=== PATIENT | male | born 1945 | race Caucasian/White ===

== ENCOUNTER → 2018-03-12 | Outpatient (CLI) | payer OTHER ==
[~2018-03-12] VITALS: Ht 185.4 cm; Wt 106.6 kg
[~2018-03-12] MED LIST: AMLODIPINE BESY10 MG PO; ASPIR 8181 MG PO; COREG25 MG PO; COZAAR 25 MG TA25 M2 PO; CRANBERRY250 MG PO; KLOR-CON 1010 MEQ PO; LASIX 20 MG TAB20 MG PO; LIPITOR 20 MG T20 M1 PO; PRESERVISION T1 EACH PO; VITAMIN D2000 UNIT PO
[2018-03-12 08:14] VITALS: BP 148/53
[2018-03-12 08:22] LABS: HEMATOCRIT 31.2 % (42.0-52.0); HEMOGLOBIN 10.9 gm/dL (14.0-18.0); MCH 33.5 pg (26.0-34.0); MCHC 34.8 g/dL (28.0-37.0); MCV 96.3 fL (80.0-100.0); RBC 3.24 mil/uL (4.50-6.00); RDW 12.6 % (10.5-14.5); WBC 11.1 thou/uL (4.0-11.0)
[2018-03-12 08:36] LABS: APTT 26.1 Seconds (24.5-32.8); PROTIME 9.5 Seconds (9.3-11.4)
== END ==
LOC: SPEC 07:42
PROVIDERS: Radiology Diagnostic Radiology
DX: I12.9 Hypertensive chronic kidney disease with stage 1 through stage 4 chronic kidney disease, or unspecified chronic kidney disease (principal); N18.3 Chronic kidney disease, stage 3 (moderate); N28.1 Cyst of kidney, acquired; K80.80 Other cholelithiasis without obstruction; M10.9 Gout, unspecified; F17.200 Nicotine dependence, unspecified, uncomplicated; F10.20 Alcohol dependence, uncomplicated

== ENCOUNTER → 2018-03-17 | Outpatient (CLI) | payer OTHER ==
[~2018-03-17] VITALS: Ht 185.4 cm; Wt 106.6 kg
[2018-03-17] VITALS (8 sets, daily range): BP systolic 163–1179; BP diastolic 59–77
[~2018-03-17] MED LIST changes: +AMLODIPINE BESYL5 M1 PO; +BYSTOLIC 5 MG5 M1 PO; +CO Q-10100 M1 PO; +COLCHICINE0.6 M1 PO; +LASIX 40 MG TAB40 M1 PO; +SODIUM BICARBO650 M3 PO
[2018-03-17 09:02] LABS: HEMATOCRIT 28.9 % (42.0-52.0); MCH 33.8 pg (26.0-34.0); MCHC 34.6 g/dL (28.0-37.0); MCV 97.6 fL (80.0-100.0); RBC 2.96 mil/uL (4.50-6.00); RDW 12.6 % (10.5-14.5); WBC 8.6 thou/uL (4.0-11.0)
[2018-03-17 09:13] LABS: CALCIUM 9.2 mg/dL (8.5-10.1); CREATININE 4.2 mg/dL (0.7-1.3); POTASSIUM 4.6 mmol/L (3.5-5.1)
[2018-03-17 09:14] LABS: PROTIME 9.5 Seconds (9.3-11.4)
--- NOTE | 2018-03-22 16:05 | PATH ---
[facility] [address] [place] [address] PATHOLOGY RPT PROCEDURE Name: DEBBIE GUTIERREZ SPENCER Room #: REG ABIGAIL Valentin#: [id number] ������������������ Admission: 03/17/18 ������������������ Date of : 43 Discharge: Report #: [id number] Path Case #: [id number] [facility] Accession Number: [id number] . 01 Material submitted: . LEFT RENAL BIOPSY . 01 Clinical history: . Renal failure . 02 Diagnosis: Special studies report received from [facility], [address] [place] [address], [place] [address], on case [id number], labeled with their number [id number], dated 03/18/2018. . Specimen submitted: By Efren Rush MD For Kidney, biopsy . DIAGNOSIS: Nodular Glomerulosclerosis. See Comment. . Tubular Atrophy and Interstitial Fibrosis, Severe. . Arterio- and Arteriosclerosis with Hyalinosis, Severe. . Global (10/07) and Segmental Glomerulosclerosis. . Comment: The glomerular findings present in this biopsy are most commonly seen in association with diabetes mellitus/glucose intolerance disorders. However, if the patient lacks a history of diabetes mellitus, the findings may represent idiopathic nodular glomerulosclerosis, an entity that can be associated with hypertension and smoking (see references). . Reference: Violet GS, Mouna J, et al. Idiopathic Nodular Glomerulosclerosis is a Distinct Clinical Pathologic Entity Linked to Hypertension and Smoking. Human Pathology. 2001; 33 (a): 826-35. . Reference: Dylan Slater V. Nodular Glomerulosclerosis in the Non-diabetic Smoker. J Am Soc Nephrol 18: 9296-9609, 2006. . Clinical History: The patient is a 72 year-old male with kidney biopsy. . Gross Description: Received from [facility] via [facility] are two foreign specimen bottles; one bottle contains formalin and the other contains Sandro's fixative. The bottles are labeled with the patient's name [address] [address] PATHOLOGY RPT PROCEDURE Name: JOSEFAANDREEA MICHELEYDE [facility] Room #: REG [facility].#: [id number] ������������������ Admission: 03/17/18 ������������������ Date of : 43 Discharge: Report #: [id number] Path Case #: [id number] ([place]st[place] MillsDebbie). . Received in formalin are two pieces of tissue measuring 1.2 x 0.1 x 0.1 cm (fatty end; bisected) and 0.3 x 0.1 x 0.1 cm (fatty). One end is submitted for electron microscopy and the remainder of the tissue is submitted in its entirety for light microscopy. . Received in Sandro's fixative is one piece of tissue measuring 1.8 x 0.1 x 0.1 cm (fatty end/middle section). The specimen is submitted in its entirety for immunofluorescence microscopy. . Microscopic Description: LIGHT MICROSCOPY: . Tissue submitted for light microscopic examination is represented by renal cortex with scant corticomedullary junction issue. There are up to eight glomeruli present, three of which are globally sclerotic. The glomeruli appear normal in size and exhibit mild to moderate expansion of mesangial matrix, focally forming early nodules. There is mild global thickening of the glomerular basement membrane. One glomerulus displays segmental scarring. There is no evidence of endocapillary proliferation, necrosis, or crescent formation. There is severe tubular atrophy and interstitial fibrosis involving approximately 60% of the cortex sampled. There is mild mixed interstitial inflammation seen in the areas of tubulointerstitial scarring. The background tubules display changes of mild tubular injury. Arterioles exhibit severe arteriolar hyalinosis, and the arteries exhibit severe intimal fibrosis. No evidence of arteritis is identified. Congo red stain for amyloid is negative. Toluidine blue-stained sections for electron microscopy show three glomeruli, one of which is globally sclerotic. . Standard of care requirements for proper analysis of renal biopsies mandates serial sections, and PAS, Olivo silver, trichrome and SMMT stains at multiple levels. PAS stains are used to evaluate various aspects of the glomerular, tubular, and vascular basement membranes. Olivo silver stains are used to evaluate thickening, reduplication, "spiking" or "bubbling" of the glomerular basement membrane. Toluidine blue stained sections highlight glomerular basement membranes and demonstrates unusual types of deposits. It also reveals details of tubular epithelial cells and aids in the analysis of vascular lesions. Jason trichrome stains are used to evaluate interstitial fibrosis and basement membrane deposits. The SMMT stain helps evaluate basement membrane changes, immune deposits and tubulointerstitial scarring. Controls are routinely run on all special stains and are verified for acceptability. A review of the technical quality of routine slides is made before results are reported. . . IMMUNOFLUORESCENCE: [address] [address] PATHOLOGY RPT PROCEDURE Name: DEBBIE GUTIERREZ III Room #: REG ABIGAIL Valentin#: [id number] ������������������ Admission: 03/17/18 ������������������ Date of : 43 Discharge: Report #: [id number] Path Case #: [id number] The sections are stained for IgG, IgM, IgA, C3, C1q, albumin, fibrinogen, and kappa and lambda light chains. Seven glomeruli are present for evaluation including three globally sclerotic. Two glomeruli display segmental scarring. Glomeruli show nodular appearing mesangial expansion by darkfield examination. All stains are negative in glomeruli. There is no significant extraglomerular staining. Crawford and lambda stain equally throughout the tubulointerstitium. . Positive and negative controls are run on all immunofluorescent stains and are verified for acceptability before results are reported. Internal antigens serve as positive controls. . ELECTRON MICROSCOPY: One block is prepared. Ultrastructural evaluation of a glomerular reveals basement membranes which are variably thickened. There is mesangial matrix expansion present. Though the mesangium contains ill-defined densities, no definite immune-type electron-dense deposits are present. No definitive immune-type electron-dense deposits are identified along the capillary refills. There is moderate to severe epithelial foot process effacement. The tubular basement membranes show moderate to severe thickening. . Special procedures including immunofluorescence and electron microscopy correlate with the light microscopy findings. . Note: Some of the tests reported here may have been developed and performance characteristics determined by [facility]. They have not been cleared or approved by the U.S. Food and Drug Administration (FDA). The FDA does not require this test to go through premarket FDA review. This test is used for clinical purposes. It should not be regarded as investigational or for research. [facility] is certified under the Clinical Laboratory Improvement Amendments of 1988 (CLIA) as qualified to perform high complexity clinical laboratory testing. . Physician/Physician's office called on 03/18/2018 at 3:17 PM Central. . *I have reviewed the clinical history, the pertinent gross findings, all microscopic materials, discussed the case with the clinician when appropriate, and have rendered the final diagnosis. . CPT Codes Performed: 96072; 51180d1; 59096; 82265; 20507q0 lCD Codes: E11.21, I12.9 . Final Diagnosis performed by Ismael Vazquez M.D. Electronically signed 03/18/2018 5:35:[address] . [address] [address] PATHOLOGY RPT PROCEDURE Name: DEBBIE GUTIERREZ [facility] Room #: REG [facility].#: [id number] ������������������ Admission: 03/17/18 ������������������ Date of : 44 Discharge: Report #: [id number] Path Case #: [id number] . A complete copy of the report is on file. . Professional and technical services performed by [facility] [place] [address] [facility], [address], [address]. . (AMJ 03/19/2018) . AZJ/03/19/2018 . 02 Electronically signed: . Julieth Borden MD, Pathologist NPI- [id number] . 01 Gross description: . The specimen is received in formalin, labeled "[place] III, Debbie, left renal general BX", is a keenan-white needle core approximately measuring 1.2 cm in length and up to 0.1 cm in diameter. All tissues are sent to, and the final report will be submitted from, [facility]. . Also received in Karina fixative, labeled "[place] III, Debbie, left renal general BX", is a keenan-white needle core approximately measuring 1.5 cm in length and up to 0.1 cm in diameter. All tissues are sent to, and the final report will be submitted from, [facility]. (SWS; 03/17/2018) SHS/SHS . 02 Pathologist provided ICD-10: N19 . 02 CPT . 862413 Specimen Comment: A courtesy copy of this report has been sent to Specimen Comment: [phone], , . Specimen Comment: Report sent to , and Performed at: [address] [facility], [place], [place] [id number] MD Ryan Padilla MD Phone: [phone] Performed at: [address] [id number] MD Julieth Borden MD Phone: [phone]
== END | disposition home or self-care (01) ==
LOC: SPEC 08:38
PROVIDERS: Radiology Diagnostic Radiology
DX: I12.9 Hypertensive chronic kidney disease with stage 1 through stage 4 chronic kidney disease, or unspecified chronic kidney disease (principal); E11.22 Type 2 diabetes mellitus with diabetic chronic kidney disease; E11.21 Type 2 diabetes mellitus with diabetic nephropathy; N18.3 Chronic kidney disease, stage 3 (moderate); M10.9 Gout, unspecified; E78.5 Hyperlipidemia, unspecified; E66.09 Other obesity due to excess calories; F17.210 Nicotine dependence, cigarettes, uncomplicated; Z79.899 Other long term (current) drug therapy; Z79.82 Long term (current) use of aspirin; Z98.890 Other specified postprocedural states

== ENCOUNTER 2018-04-22 17:55 | Inpatient (IN) | payer OTHER ==
[2018-04-22] VITALS (8 sets, daily range): BP systolic 130–161; BP diastolic 35–54
[~2018-04-22] VITALS: Ht 182.9 cm; Wt 93.0 kg
--- NOTE | ~2018-04-22 | HC ---
[facility] [place] [address] CONSULTATION Name: DEBBIE GUTIERREZ III Room #: 240-P ADM IN M.R.#: [id number] Admission: 04/22/18 Attend Phys: Mihai Denney Discharge: Date of : 44 Report #: [id number] THIS REPORT FOR: //name// CC: Ros Carson NO PCP Frank Mcintosh DATE OF SERVICE: 04/23/2018 REASON FOR PRESENTATION: Feeling weak and bilateral lower extremity swelling. REASON FOR CONSULTATION: Hyperkalemia and advanced chronic kidney disease. HISTORY OF PRESENT ILLNESS: A 73-year-old with past medical history of hypertension. He is known to have advanced stage 5 chronic kidney disease and used to follow up with [facility]. He last saw his pea viner mechanic in March 2017 and he was told that he is very close to hemodialysis. He was told that his kidney disease is likely due to hypertension. No known personal history of nonsteroidal anti-inflammatory medications. He is not diabetic. His mom had some issues with end-stage renal disease that was attributed to hypertension toward the end of her life. The patient presented with weakness and was found to be hyperkalemic yesterday. He has all the acute changes of hyperkalemia. He was admitted to the intensive care unit to further evaluate. I am being consulted to manage his hyperkalemia and chronic kidney disease. In talking with the patient, he tells me that he is completely adamant about not pursuing hemodialysis. Because of this, he opted to consult with a chiropractic physician who advised the patient to start on a heavy fruit diet. He also had been taking losartan. The patient tells me he also had some issues with fluid retention, bilateral lower extremity swelling that was not responding to appropriate diuretic therapy. He was told by his pea viner mechanic that he also has cysts on his kidneys. No sensed symptoms to suggest connective tissue disorders or glomerulonephritis. No vasculitic symptoms. No obstructive symptoms. In fact, he had made significant amount of urine in the last 24 hours. PAST MEDICAL AND SURGICAL HISTORY: 1. Advanced chronic kidney disease. 2. Hypertension. 3. Hand surgery. 4. Colonoscopies. 5. Gout. 6. Renal cysts. 7. Post renal biopsy in February 2018, was nonconclusive suggestive of advanced chronic kidney disease. [address] [address] CONSULTATION Name: DEBBIE GUTIERREZ [facility] Room #: 240-P [facility] IN M.R.#: [id number] Admission: 04/22/18 Attend Phys: Mihai Denney Discharge: Date of : 44 Report #: [id number] MEDICATIONS: 1. Losartan. 2. Carvedilol. 3. Amlodipine. 4. Atorvastatin. 5. Potassium. 6. Furosemide. 7. Cranberry. 8. Vitamin D. ALLERGIES: None. FAMILY HISTORY: His mom had issues with kidneys. REVIEW OF SYSTEMS: GENERAL: No fever or chills, but significant for weakness. CARDIOVASCULAR: No chest pain or palpitation, but had some shortness of breath. PULMONARY: Significant for shortness of breath. GASTROINTESTINAL: No nausea or vomiting. GENITOURINARY: No frequency, no urgency. MUSCULOSKELETAL: Significant lower extremity edema. PHYSICAL EXAMINATION: GENERAL: The patient was alert, oriented. VITAL SIGNS: Blood pressure is 151/57. HEAD AND NECK: No jugular venous distention, no bruit, no thyromegaly. CHEST: Decreased air entry bilaterally. CARDIOVASCULAR: No rub detected. ABDOMEN: Soft, nontender with no hepatosplenomegaly. EXTREMITIES: Lower extremities, +3 edema. LABORATORY DATA: Reviewed. White blood cell count is 12.2, hemoglobin is 8.1 up from 6.5. Chemistry from today revealed a sodium of 138, a potassium of 6.2, anion gap of 13, BUN of 53, creatinine of 5.5. Troponins were negative. UA with +2 protein and red blood cells. Serology for MRSA is pending. Lower extremity venous studies with no DVT. Chest x-ray with no acute cardiopulmonary process. ASSESSMENT, IMPRESSION AND PLAN: 1. End-stage renal disease. 2. Hyperkalemia. 3. Anemia. 4. Hypertension. 5. Metabolic acidosis. [address] [address] CONSULTATION Name: PABLO GUTIERREZE [facility] Room #: 240-P [facility] IN M.R.#: [id number] Admission: 04/22/18 Attend Phys: Mihai Denney Discharge: Date of : 44 Report #: [id number] This is a very well documented end-stage renal disease with hyperkalemia due to the recent changes in the diet. Contributing to his hyperkalemia is his medications and diet. Potassium has trended down significantly. He is receiving appropriate therapy for his hyperkalemia. His heart rhythm had stabilized after a junctional rhythm. We will continue with the medical management per patient wishes. Discontinue all potassium supplements. Discontinue losartan. Initiate on IV diuresis. End-stage renal disease workup and continue with the medical treatment. The patient is not willing to pursue the dialysis idea at this point; however, he is wide open to the idea and I will continue to monitor his kidney function if there is no improvement in his potassium. By: 0956 Ros Paulino MD /nt
--- NOTE | ~2018-04-22 | HC ---
[facility] [place] [address] CONSULTATION Name: DEBBIE GUTIERREZ III Room #: 240-P ADM IN M.R.#: [id number] Admission: 04/22/18 Attend Phys: Mihai Denney Discharge: Date of : 44 Report #: [id number] THIS REPORT FOR: //name// CC: Ros Carson NO PCP Frank Mcintosh DATE OF SERVICE: 04/23/2018 HISTORY OF PRESENT ILLNESS: This is a 73-year-old male patient who was evaluated by me for TIA. It looks like the patient had pretty typical TIA with right-sided weakness and speech difficulty. On evaluation, he was found to have severe carotid stenosis. Unfortunately, he has not had much medical compliance and he was also found to have numerous other medical problems including cardiac failure. He was sent for MRI and MRA, but he could not tolerate because he was severely claustrophobic. He is hypertensive. He is being seen by multiple consultants at a time including cardiothoracic/vascular surgery. REVIEW OF SYSTEMS: Pretty significant in this patient. The patient has a history of hypertension, chronic kidney disease, gout, had bradycardia. He had right-sided weakness and slurred speech and was not able to ambulate. He has a history of some skin problem, history of gout, renal cyst, moderate amount of alcohol drinking, history of hypertension. From all indication, it does not look like he is a compliant patient. REVIEW OF SYSTEMS: A 14-point review of system was carried out and this was the patient's relevant 14-point review of system. He was not complaining of any eye, ENT symptoms. He was not having any respiratory difficulty, GI, , musculoskeletal, constitutional, dermatological, hematological, psychiatric, throat, allergic symptom associated with present symptomatology. PAST MEDICAL HISTORY: Positive for kidney disease. FAMILY HISTORY: Negative for early age stroke. SOCIAL HISTORY: He does have a history of smoking. PHYSICAL EXAMINATION: Indicate he is alert, responsive, able to follow simple and complex command. His memory, fund of knowledge and speech is baseline. Both family and the patient think, the patient has returned back to his baseline. His cranial nerve examination appears noncontributory. New neuromuscular examination as checked for strength, sensation, reflexes and tone looks symmetrical. He has no meningeal sign. I could not look at the fundus. Cardiac examinations appear unremarkable. He does not appear to be in [address] [address] CONSULTATION Name: DEBBIE GUTIERREZ [facility] Room #: 240-P [facility] IN ..#: [id number] Admission: 04/22/18 Attend Phys: Mihai Denney Discharge: Date of : 44 Report #: [id number] respiratory difficulty. He is a well-developed individual who is obese. No respiratory difficulty was noticed. His blood pressure is running about 171/59, temperature is 97.4, pulse is 61. LABORATORY DATA: His carotid Doppler was noted and his labs were noted. He was markedly anemic with hemoglobin of 6.5. His potassium was 5.4. His CT scan was mostly unremarkable. Carotid Doppler indicate more than 90% stenosis. IMPRESSION: 1. Transient ischemic attack. 2. Carotid stenosis by Doppler, in appropriate location. 3. Numerous medical problems as summarized in other people's notes. RECOMMENDATIONS: 1. Continue aspirin. 2. Check lipid profile and manage accordingly. 3. Try to keep his blood pressure somewhat high. 4. It was desirable to confirm the carotid stenosis by some other testing. I had ordered an MRA for that. Unfortunately, the patient could not tolerate that. He could not have a CT angio because of his kidney problem. We will see how Cardiothoracic, Vascular Surgery feel comfortable proceeding on the basis of carotid Doppler alone. Otherwise, nothing specific to add. He needs to control his vascular risk factors over a period of time and all of it was discussed with the patient and the family in detail. By: 1920 0241 Cabrera Drummond MD /nt
[~2018-04-22 17:55] MED LIST changes: -AMLODIPINE BESYL5 M1 PO; -BYSTOLIC 5 MG5 M1 PO; -CO Q-10100 M1 PO; -COLCHICINE0.6 M1 PO; -LASIX 40 MG TAB40 M1 PO; -SODIUM BICARBO650 M3 PO
[2018-04-22 18:26] LABS: ABSOLUTE NEUTROPHILS 7.5 thou/uL (1.4-8.2); BASOPHILS 1.3 % (0.0-2.0); EOSINOPHILS 3.4 % (0.0-3.0); HEMATOCRIT 23.3 % (42.0-52.0); LYMPHOCYTES 10.2 % (24.0-44.0); MCH 33.8 pg (26.0-34.0); MCHC 34.4 g/dL (28.0-37.0); MCV 98.1 fL (80.0-100.0); PLATELET COUNT 157 thou/uL (150-400); POLYS 78.1 % (36.0-66.0); RBC 2.38 mil/uL (4.50-6.00); WBC 9.7 thou/uL (4.0-11.0)
[2018-04-22 18:39] LABS: ANION GAP 12 mmol/L (7-16); BUN 54 mg/dL (7-18); CALCIUM 8.3 mg/dL (8.5-10.1); CHLORIDE 106 mmol/L (98-107); CO2 17 mmol/L (21-32); CREATININE 5.5 mg/dL (0.7-1.3); GLUCOSE 124 mg/dL (74-106); SODIUM 135 mmol/L (136-145)
[2018-04-22 18:42] LABS: POTASSIUM 6.9 mmol/L (3.5-5.1)
[2018-04-22 18:44] LABS: POC CA IONIZED 3.8 mg/dL (4.5-5.3); POC CREATININE 4.9 mg/dL (0.6-1.3); POC HEMOGLOBIN 6.5 g/dL (14.0-18.0); POC POTASSIUM 5.8 mmol/L (3.5-5.1)
--- NOTE | 2018-04-22 18:45 | NUR ---
THIS RN WITNESSED INSULIN 10U DRAWN FOR ADMINISTRATION BY MERY ARRIAGA
[2018-04-22 18:46] LABS: ALBUMIN 3.2 g/dL (3.4-5.0); SGOT 33 U/L (15-37); SGPT 27 U/L (30-65); TOTAL BILIRUBIN 0.3 mg/dL (<0.1-1.0); TOTAL PROTEIN 6.1 g/dL (6.4-8.2); TROPONIN-I <0.06 ng/mL (<0.06)
[2018-04-22 18:47] LABS: APTT 24.5 Seconds (24.5-32.8); PROTIME 10.6 Seconds (9.3-11.4)
[2018-04-22 19:39] LABS: URINE BILIRUBIN NEGATIVE (Negative); URINE BLOOD 3+ (Negative); URINE CLARITY CLEAR; URINE COLOR YELLOW; URINE GLUCOSE-RANDOM* NEGATIVE (Negative); URINE KETONES NEGATIVE (Negative); URINE LEUKOCYTES-REFLEX NEGATIVE (Negative); URINE NITRITE-REFLEX NEGATIVE (Negative); URINE PROTEIN (DIPSTICK) 2+ (Negative); URINE SPECIFIC GRAVITY >= 1.030 (1.005-1.035); URINE UROBILINOGEN 0.2 E.U./dl (0.2-1.0)
[2018-04-22 19:49] LABS: POC CA IONIZED 5.9 mg/dL (4.5-5.3); POC CREATININE 5.6 mg/dL (0.6-1.3); POC HEMOGLOBIN 7.5 g/dL (14.0-18.0); POC POTASSIUM 5.6 mmol/L (3.5-5.1)
[2018-04-22 19:55] LABS: BACTERIA-REFLEX 1-9 Few /HPF (None Seen); HYALINE CASTS 0-3 Few /LPF (None Seen); MUCUS None Seen strn/LPF (None Seen); SQUAMOUS 0-3 Few /LPF (0-3); URINE RBC 3-10 Few /HPF (0-2); URINE WBC-REFLEX 0-5 Rare /HPF (0-5)
[2018-04-22 19:56] LABS: AMORPHOUS URATES Few /LPF (None Seen); CRYSTALS None Seen /LPF (None Seen)
[2018-04-22 21:28] LABS: POC CA IONIZED 5.5 mg/dL (4.5-5.3); POC CREATININE 5.2 mg/dL (0.6-1.3); POC HEMOGLOBIN 8.8 g/dL (14.0-18.0); POC POTASSIUM 5.2 mmol/L (3.5-5.1)
[2018-04-22] MEDS ORDERED: CO Q-10100 M1 PO (23:41)
[2018-04-23] VITALS (29 sets, daily range): BP systolic 143–191; BP diastolic 44–71
--- NOTE | 2018-04-23 04:38 | NUR ---
ASSUMED CARE OF PATIENT AT 2300, PATIENT HAD JUST BEEN ADMITTED FROM ER. ABLE TO ANSWER ALL ADMISSION QUESTIONS. STROKE ASSESSMENT DONE, SEE DOCUMENTATION. DENIES PAIN, SOA OR N/V. BLOOD SUGARS LABILE AFTER TREATMENT FOR POTASSIUM. MONITORING HOURLY. TOMAS TO DEPENDENT DRAINAGE, ADEQUATE OUTPUT. FAMILY AT BEDSIDE, UPDATED TO POC.
[2018-04-23 05:22] LABS: HEMATOCRIT 24.5 % (42.0-52.0); HEMOGLOBIN 8.1 gm/dL (14.0-18.0); MCH 32.4 pg (26.0-34.0); MCHC 32.9 g/dL (28.0-37.0); MCV 98.6 fL (80.0-100.0); RBC 2.49 mil/uL (4.50-6.00); RDW 13.2 % (10.5-14.5); WBC 12.2 thou/uL (4.0-11.0)
[2018-04-23 05:50] LABS: CHOLESTEROL 87 mg/dL (<200); HDL CHOLESTEROL 32 mg/dL (>40); LDL CHOLESTEROL 46 mg/dL (<100); TC:HDL 2.7 Ratio (Not establshd); TRIGLYCERIDE 48 mg/dL (<150); VLDL 10 mg/dL (<40)
[2018-04-23 05:51] LABS: SERUM ASSESSMENT Clear
[2018-04-23 05:56] LABS: CALCIUM 9.3 mg/dL (8.5-10.1); CREATININE 5.5 mg/dL (0.7-1.3)
[2018-04-23 06:08] LABS: POTASSIUM 6.2 mmol/L (3.5-5.1)
--- NOTE | 2018-04-23 08:15 | EKG ---
[address] [place] [address] ELECTROCARDIOGRAM REPORT Name: JOSEFAANDREEA MICHELELESLIE GAGNON [facility] Room #: 240-P ADM IN M.R.#: [id number] Admission: 04/22/18 Attend Phys: Mihai Denney Discharge: Date of : 44 Report #: [id number] THIS REPORT FOR: //name// [facility] ED Test Date: 2018-04-22 Test Time: 18:31:27 Pat Name: DEBBIE GUTIERREZ Department: Room: 240 Gender: M Professor Of Violin: : 1945 Requested By: Dipti Wallace Order Number: [id number] MD: Hansel Arroyo Measurements Intervals [place] Rate: 33 P: TN: QRS: 103 QRSD: 106 T: 58 QT: 528 QTc: 392 Interpretive Statements Sinus arrest with Junctional rhythm Right axis deviation No previous ECG available for comparison Electronically Signed On 04-23-2018 8:15:44 JAVA SWING DEVELOPER by Hansel Arroyo [email or web address] <ELECTRONICALLY SIGNED> By: Hansel Arroyo MD 04/23/18 0815 183 30 Hansel Arroyo MD /VISHAL
--- NOTE | 2018-04-23 08:43 | 2DMMODE ---
[facility] [place] [address] 2 D/M-MODE ECHOCARDIOGRAM Name: JHRYNEDEBBIE [facility] Room #: 240-P [facility] IN .R.#: [id number] Admission: 04/22/18 Attend Phys: Mihai Teague Discharge: Date of : 43 Date of Service: 04/23/18 0843 Report #: [id number] THIS REPORT FOR: //name// APPROVED REPORT Study performed: 04/22/2018 19:37:30 EXAM: Comprehensive 2D, Doppler, and color-flow Echocardiogram Patient Location: ER Room #: 6 Status: on-call BSA: 2.30 HR: 53 bpm BP: 149/53 mmHg Rhythm: Bradycardia Other Information Study Quality: Adequate Risk Factors: Cardiac Risk Factors: HTN Indications Symptomatic Bradycardia 2D Dimensions IVSd: 12.05 (7-11mm) LVOT Diam: 18.00 (18-24mm) LVDd: 45.02 mm PWd: 11.91 (7-11mm) Ascending Ao: 30.91 (22-36mm) LVDs: 31.98 (25-40mm) Aortic Root: 31.30 mm LV Single Plane 4CH: 66.98 % LV Single Plane 2CH: 63.86 % Biplane EF: 64.5 % Volumes Left Atrial Volume (Systole) Single Plane 4CH: 40.13 mL Single Plane 2CH: 80.33 mL LA ESV Index: 30.00 mL/m2 Aortic Valve AoV Peak Seb.: 1.81 m/s AO Peak Gr.: 13.10 mmHg LVOT Max P.04 mmHg LVOT Max V: 1.00 m/s THERESA Vmax: 1.38 cm2 [facility] [place] [address] 2 D/M-MODE ECHOCARDIOGRAM Name: JHDEBBIE MICHELE [facility] Room #: [facility] IN ..#: [id number] Admission: 04/22/18 Attend Phys: Mihai Teague Discharge: Date of : 43 Date of Service: 04/23/18 0843 Report #: [id number] Mitral Valve E/A Ratio: 1.6 MV Decel. Time: 265.34 ms MV E Max Seb.: 1.63 m/s MV A Seb.: 1.04 m/s MV PHT: 76.95 ms IVRT: 58.82 ms TDI E/Lateral E': 18.11 E/Medial E': 23.29 Medial E' Seb.: 0.07 m/s Lateral E' Seb.: 0.09 m/s Pulmonary Valve PV Peak Seb.: 1.42 m/s PV Peak Gr.: 8.08 mmHg Pulmonary Vein P Vein S: 0.58 m/s P Vein A: 0.22 m/s P Vein D: 0.89 m/s P Vein A Dur.: 134.9 msec P Vein S/D Ratio: 0.65 Tricuspid Valve TR Peak Seb.: 3.02 m/s RAP Estimate: 10.00 mmHg TR Peak Gr.: 36.41 mmHg PA Pressure: 46.00 mmHg Left Ventricle The left ventricle is normal size. There is normal LV segmental wall motion. Mild concentric left ventricular hypertrophy. Left ventricular systolic function is normal. The left ventricular ejection fraction is within the normal range. LVEF is 60-65%. Grade II - pseudonormal filling dynamics. Right Ventricle The right ventricle is normal size. The right ventricular systolic function is normal. Atria The left atrium size is normal. Right atrium is mildly dilated. Aortic Valve The Aortic valve is sclerotic. No aortic regurgitation is present. There is no aortic valvular stenosis. [facility] [address] [address] 2 D/M-MODE ECHOCARDIOGRAM Name: DEBBIE GUTIERREZ [facility] Room #: 240-P [facility] IN [facility]#: [id number] Admission: 04/22/18 Attend Phys: Mihai Teague Discharge: Date of : 43 Date of Service: 04/23/18 0843 Report #: [id number] Mitral Valve There is mitral annular calcification. Mild mitral regurgitation. No evidence of mitral valve stenosis. Tricuspid Valve The tricuspid valve is normal in structure. Mild tricuspid regurgitation. Pulmonary artery pressure is 46 mmHg. Pulmonic Valve The pulmonary valve is normal in structure. There is no pulmonic valvular regurgitation. Great Vessels The aortic root is normal in size. IVC is mildly dilated and collapses <50% with inspiration. Pericardium There is no pericardial effusion. <Conclusion> The left ventricle is normal size. Mild concentric left ventricular hypertrophy. Left ventricular systolic function is normal. Grade II - pseudonormal filling dynamics. The right ventricle is normal size. The left atrium size is normal. Right atrium is mildly dilated. The Aortic valve is sclerotic. Mild mitral regurgitation. Mild tricuspid regurgitation. Pulmonary artery pressure is 46 mmHg. <ELECTRONICALLY SIGNED> By: Keith Carson MD 04/23/18 0843 0843 0843 Keith Carson MD /INF
--- NOTE | 2018-04-23 15:18 | NUR ---
CM ASSESSMENT: CASE OPENED FOR DC PLANNING. CLINICAL INFO REVIEWED. ADMIT FOR HYPERKALEMIA (6.2) AND BRADYCARDIA, HX CKD 3 (CR NOW 5.5). MET WITH PT AND HIS SISTER AT BEDSIDE. 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 NO DME OR PREVIOUS HH. THERAPY EVALS ORDERED AND WILL FOLLOW TO ASSIST WITH COORDINATION OF DC NEEDS.
--- NOTE | 2018-04-23 19:00 | NUR ---
Pt alert and oriented. JUAN. No weakness or neurological defecit observed this shift. Pt taken for MRI this morning but pt indicated he would not be able to to have the test done due to claustraphobia. Pt was brought back to ICU and Dr Drummond was notified and test was cancelled for now. Pt in sinus rhythm. BP stable. NO report of chest pain. Pt does get short of air with exertion Breath sounds diminished bilaterally. Tolerating renal diet. Pt voided 2525 ml of urine. Pt had two loose stools after receiving Kayexylate. Saline lock right AC. Sister and son & daughter present at bedside most of the day. Report given to MERY lawler
[2018-04-24] VITALS (15 sets, daily range): BP systolic 134–177; BP diastolic 42–54
[2018-04-24 04:53] LABS: HEMATOCRIT 24.3 % (42.0-52.0); HEMOGLOBIN 8.2 gm/dL (14.0-18.0); MCH 32.6 pg (26.0-34.0); MCHC 33.9 g/dL (28.0-37.0); MCV 95.9 fL (80.0-100.0); RBC 2.53 mil/uL (4.50-6.00); RDW 12.8 % (10.5-14.5); WBC 10.9 thou/uL (4.0-11.0)
[2018-04-24 05:09] LABS: % SATURATION 9 % (20-39); IRON 26 ug/dL (65-175); TIBC 274 ug/dL (250-450)
[2018-04-24 05:12] LABS: ALBUMIN 3.1 g/dL (3.4-5.0); ANION GAP 12 mmol/L (7-16); BUN 50 mg/dL (7-18); CALCIUM 9.1 mg/dL (8.5-10.1); CHLORIDE 107 mmol/L (98-107); CO2 22 mmol/L (21-32); CREATININE 5.5 mg/dL (0.7-1.3); GLUCOSE 87 mg/dL (74-106); PHOSPHORUS 6.7 mg/dL (2.5-4.9); POTASSIUM 4.6 mmol/L (3.5-5.1); SODIUM 141 mmol/L (136-145); TROPONIN-I <0.06 ng/mL (<0.06)
--- NOTE | 2018-04-24 06:07 | NUR ---
Pt slept well through the night with stable VS and no c/o pain. Continues to diurese well with lasix given. No changes in neuro status observed. Am lab results noted, continue with POC.
[2018-04-24 07:10] LABS: GLYCOHEMOGLOBIN (HGB A1C) 4.3 % (4.8-5.6)
--- NOTE | 2018-04-24 12:21 | NUR ---
ASSESSMENTS DOCMENTED. VSS. HTN - STARTED ON PO NORVASC. WORKED WITH PT, UP TO CHAIR WITH STANDBY ASSIST. FOLY PATENT, GOOD URINE OUTPUT. DENIES ANY PAIN OR DISCOMFORT. ORDERS TO TRANSFER TO CCU. REPORT GIVEN TO IRENE ORDONEZ. TRANSFERRED TO ROOM 209 IN STABLE CONDITION. ALL BELONGINGS WITH PATIENT, FAMILY NOTIFIED.
--- NOTE | 2018-04-24 16:15 | NUR ---
PT TO UNIT FROM THE ICU. PT ORINETED TO ROOM AND BED SPACE - PT UP IN CHAIR SINCE ARRIVAL TO UNIT, THINKS HE MAY HAVE BUMPED HIS R KNEE ON BED RAIL LAST PM - STATED IT HURT A LITTLE ICE PACK APPLIED AND PT STATES IT FEELS BETTER - ASSESSMENT CHARTED - MEDS PER MAR - NO CO'S OF PAIN OR NASUEA. NO CO'S AT PRESENT TIME.
[2018-04-25] VITALS: BP 152/60
[2018-04-25 04:51] VITALS: BP 164/52
[2018-04-25 04:59] LABS: CREATININE 5.6 mg/dL (0.7-1.3); PHOSPHORUS 6.4 mg/dL (2.5-4.9); POTASSIUM 3.9 mmol/L (3.5-5.1); TOTAL BILIRUBIN 0.5 mg/dL (<0.1-1.0); TOTAL PROTEIN 6.3 g/dL (6.4-8.2)
[2018-04-25 05:12] LABS: HEMATOCRIT 24.2 % (42.0-52.0); HEMOGLOBIN 8.3 gm/dL (14.0-18.0); MCH 32.9 pg (26.0-34.0); MCHC 34.4 g/dL (28.0-37.0); MCV 95.4 fL (80.0-100.0); RBC 2.54 mil/uL (4.50-6.00); RDW 12.8 % (10.5-14.5); WBC 9.2 thou/uL (4.0-11.0)
--- NOTE | 2018-04-25 05:36 | NUR ---
ASSUMED PT CARE AT 1900 WITH NO SIGN OF DISTRESS NOTED IN PT. PT IS ALERT AND ORIENTED. PT IS SITTING IN CHAIR WITH FAMILY AT BEDSIDE. PT IS STABLE, VITAL SIGN STABLE. SCHEDULED MED ADMINISTERED TO PATIENT. PT'S HEART RYHTHM IS STABLE, DENIES ANY FURTHER NEEDS AT THIS TIIME.
[2018-04-25 07:55] VITALS: BP 140/47
[2018-04-25 12:15] VITALS: BP 153/53
[2018-04-25 16:10] VITALS: BP 133/49
--- NOTE | 2018-04-25 17:26 | NUR ---
ASSESSMENT CHARTED - MEDS PER MAY - NO CO'S OF PAIN OR NASUEA. HUMBERTO DIET AND FLUIDS. PT CONT TO HAVE PAIN IN R KNEE - STARTED ON GOUT MEDICINE THIS AM AND GIVEN TYLEONOL WITH MIN EFFECT. UP WITH STANDBY ASSIST TOT BATHROOM DUE TO PAIN IN KNEE. NO CO'S AT THE PRESENT TIME.
[2018-04-25 20:26] VITALS: BP 174/53
[2018-04-26 03:43] LABS: CALCIUM 8.4 mg/dL (8.5-10.1); PHOSPHORUS 6.3 mg/dL (2.5-4.9); POTASSIUM 3.9 mmol/L (3.5-5.1)
[2018-04-26 04:44] VITALS: BP 151/55
--- NOTE | 2018-04-26 05:57 | NUR ---
ASSUMED PT CARE AT 1900 WITH NO SIGN OF DISTRESS NOTED IN PT, PT IS ALERT AND ORIENTED, FAMILY SITTING AT BEDSIDE. PT IS STABLE AND SITTING IN CHAIR, DENIES ANY NEEDS AT THIS TIME.SCHEDULED MED ADMINISTERED TO PT AND TOLERATED PO INTAKE. PT IS STABLE. VITAL SIGN STABLE. DENIES ANY FURTHER NEEDS AT THIS TIME. ASSESSEMENT DOCUMENTED.
[2018-04-26 07:55] VITALS: BP 148/44
[2018-04-26] MEDS ORDERED: BYSTOLIC 5 MG5 M1 PO (08:51)
[2018-04-26] MEDS ORDERED: AMLODIPINE BESYL5 M1 PO (08:52)
[2018-04-26] MEDS ORDERED: SODIUM BICARBO650 M3 PO (08:52)
[2018-04-26] MEDS ORDERED: LASIX 40 MG TAB40 M1 PO (08:52)
[2018-04-26] MEDS ORDERED: COLCHICINE0.6 M1 PO (08:53)
[2018-04-26 09:38] VITALS: BP 148/41
[2018-04-26 12:10] VITALS: BP 158/49
--- NOTE | 2018-04-26 14:33 | NUR ---
ASSUMED CARE OF PT AT SHIFT CHANGE. ASSESSMENTS CHARTED. MEDS GIVEN PER MAY. PT AOX4, C/O PAIN IN KNEE, DID NOT WANT PAIN MEDS, INSTEAD WANTED GOUT MEDICINE. VSS, O2 SATS WNL ON ROOM AIR, NO S/SX OF CARDIAC OR RESP DISTRESS NOTED. DENIES CHEST PAIN. DC ORDERS ACKNOWLEDGED AND IMPLEMENTED. DC PAPERWORK REVIEWED WITH PT, COMMUNICATES UNDERSTANDING. PT LEFT UNIT AT APPROX 1427 WITH SISTER AND VOLUNTEER TRANSPORT. IV REMOVED, TELEMETRY REMOVED. PT LEFT WITH ALL BELONGINGS.
[2018-04-26 14:36] VITALS: BP 148/41
== END 2018-04-26 14:28 | disposition home or self-care (01) | DRG 682 ==
LOC: ER 17:55 → ICU 20:28 → EROBS 20:28 → ICU 22:13 → 2N 04-24 12:17 → ENTRNSPT 04-26 14:12 → EDTRNSPTSTS 04-26 14:13 → 2N 04-26 14:28
PROVIDERS: Hospitalist; Internal Medicine Nephrology; Nurse Practitioner Family; Student in an Organized Health Care Education/Training Program; ADMIT Hospitalist
DX: N17.9 Acute kidney failure, unspecified (principal); E43 Unspecified severe protein-calorie malnutrition; G45.9 Transient cerebral ischemic attack, unspecified; E87.2 Acidosis; N18.6 End stage renal disease; R00.1 Bradycardia, unspecified; I65.22 Occlusion and stenosis of left carotid artery; E16.2 Hypoglycemia, unspecified; E87.5 Hyperkalemia; M10.061 Idiopathic gout, right knee; D50.9 Iron deficiency anemia, unspecified; F17.210 Nicotine dependence, cigarettes, uncomplicated; Z85.828 Personal history of other malignant neoplasm of skin; Z79.82 Long term (current) use of aspirin; Z79.899 Other long term (current) drug therapy; Z84.1 Family history of disorders of kidney and ureter; Z82.49 Family history of ischemic heart disease and other diseases of the circulatory system; Z83.6 Family history of other diseases of the respiratory system
CPT/HCPCS: 10078; 10081

== ENCOUNTER → 2018-05-03 | Outpatient (CLI) | payer OTHER ==
[~2018-05-03] MED LIST changes: +AMLODIPINE BESYL5 M1 PO; +BYSTOLIC 5 MG5 M1 PO; +CO Q-10100 M1 PO; +COLCHICINE0.6 M1 PO; +LASIX 40 MG TAB40 M1 PO; +SODIUM BICARBO650 M3 PO
== END ==
LOC: NUC 07:11
DX: R00.1 Bradycardia, unspecified (principal); R55 Syncope and collapse; E78.5 Hyperlipidemia, unspecified; I10 Essential (primary) hypertension; Z87.891 Personal history of nicotine dependence

== ENCOUNTER 2018-08-22 01:08 | Emergency (ER) | payer OTHER ==
[~2018-08-22] VITALS: Ht 185.4 cm; Wt 84.8 kg
[2018-08-22] MEDS ORDERED: ACETAMINOPHEN-1 EAC1 PO (02:50)
[2018-08-22 04:07] VITALS: BP 163/78
== END 2018-08-22 04:14 | disposition home or self-care (01) ==
LOC: ER 01:08
DX: S06.0X1A Concussion with loss of consciousness of 30 minutes or less, initial encounter (principal); S20.212A Contusion of left front wall of thorax, initial encounter; K04.7 Periapical abscess without sinus; F17.210 Nicotine dependence, cigarettes, uncomplicated; M10.9 Gout, unspecified; I12.9 Hypertensive chronic kidney disease with stage 1 through stage 4 chronic kidney disease, or unspecified chronic kidney disease; N18.3 Chronic kidney disease, stage 3 (moderate); Z98.890 Other specified postprocedural states; Y08.89XA Assault by other specified means, initial encounter; Y93.89 Activity, other specified; Y92.89 Other specified places as the place of occurrence of the external cause; Y99.8 Other external cause status

== ENCOUNTER 2018-09-06 22:19 | Emergency (ER) | payer OTHER ==
[~2018-09-06] VITALS: Ht 182.9 cm; Wt 81.7 kg
[~2018-09-06 22:19] MED LIST changes: +ACETAMINOPHEN-1 EAC1 PO
== END 2018-09-07 00:12 | disposition home or self-care (01) ==
LOC: ER 22:19
DX: T21.24XA Burn of second degree of lower back, initial encounter (principal); T31.0 Burns involving less than 10% of body surface; M10.9 Gout, unspecified; I12.9 Hypertensive chronic kidney disease with stage 1 through stage 4 chronic kidney disease, or unspecified chronic kidney disease; N18.3 Chronic kidney disease, stage 3 (moderate); F17.210 Nicotine dependence, cigarettes, uncomplicated; X19.XXXA Contact with other heat and hot substances, initial encounter; Y93.89 Activity, other specified; Y92.89 Other specified places as the place of occurrence of the external cause; Y99.8 Other external cause status

== ENCOUNTER → 2019-03-11 | Outpatient (CLI) | payer OTHER ==
[2019-03-11 12:10] VITALS: BP 164/53
[2019-03-11 13:45] VITALS: BP 183/63
--- NOTE | 2019-03-11 14:49 | NUR ---
IN FOR 1ST INJECTAFER INFUSION FOR IRON DEFICIENCY ANEMIA. STATED MAIN CONCERN IS FATIGUE. ADMISSION HISTORY AND ASSESSMENT COMPLETED. MEDICATIONS RECONCILED. TOLERATED INFUSION WITHOUT INCIDENT. OBSERVED FOR 30 MINUTES AND THEN DISMISSED IN STABLE CONDITION. POST VITAL SIGNS STABLE.
== END ==
LOC: OPONC 12:00
DX: I12.9 Hypertensive chronic kidney disease with stage 1 through stage 4 chronic kidney disease, or unspecified chronic kidney disease (principal); N18.5 Chronic kidney disease, stage 5; D63.1 Anemia in chronic kidney disease; D50.9 Iron deficiency anemia, unspecified; E83.39 Other disorders of phosphorus metabolism
CPT/HCPCS: 95000

== ENCOUNTER → 2019-03-18 | Outpatient (CLI) | payer OTHER ==
[2019-03-18 13:05] VITALS: BP 179/64
[2019-03-18 14:15] VITALS: BP 184/63
--- NOTE | 2019-03-18 15:37 | NUR ---
IN FOR 2ND INJECTAFER INFUSION FOR IRON DEFICIENCY ANEMIA. PATIENT STATED HE HAD A LITTLE NAUSEA FOR 24 HOURS AFTER 1ST INFUSION LAST WEEK BUT WAS STILL ABLE TO EAT AND DRINK. ALSO HAS AN EARACHE TODAY. IS PLANNING ON GOING TO URGENT CARE AFTER HIS INFUSION TODAY. IV PLACED. TOLERATED INFUSION WITHOUT INCIDENT. POST VITAL SIGNS GOOD. REMOVED IV. OBSERVED FOR 30 MINUTES AND THEN DISMISSED IN STABLE CONDITION.
== END ==
LOC: OPONC 10:41
DX: N18.5 Chronic kidney disease, stage 5 (principal); D63.1 Anemia in chronic kidney disease
CPT/HCPCS: 95000

== ENCOUNTER → 2019-04-26 | Outpatient (CLI) | payer OTHER | LOC: SJCVCIMAG 08:00 | DX: I65.23 Occlusion and stenosis of bilateral carotid arteries (principal); I25.10 Atherosclerotic heart disease of native coronary artery without angina pectoris; I73.9 Peripheral vascular disease, unspecified; E78.00 Pure hypercholesterolemia, unspecified; I12.0 Hypertensive chronic kidney disease with stage 5 chronic kidney disease or end stage renal disease; N18.5 Chronic kidney disease, stage 5; M10.9 Gout, unspecified; F17.210 Nicotine dependence, cigarettes, uncomplicated; Z79.82 Long term (current) use of aspirin; Z79.2 Long term (current) use of antibiotics; Z79.899 Other long term (current) drug therapy ==

== ENCOUNTER → 2019-11-01 | Outpatient (CLI) | payer OTHER | LOC: SJCVCIMAG 07:17 | PROVIDERS: ATTEND Nuclear Medicine Nuclear Cardiology | DX: I65.23 Occlusion and stenosis of bilateral carotid arteries (principal); I70.203 Unspecified atherosclerosis of native arteries of extremities, bilateral legs; I12.0 Hypertensive chronic kidney disease with stage 5 chronic kidney disease or end stage renal disease; N18.5 Chronic kidney disease, stage 5; E78.00 Pure hypercholesterolemia, unspecified; E78.5 Hyperlipidemia, unspecified; M10.9 Gout, unspecified; F17.210 Nicotine dependence, cigarettes, uncomplicated; Z79.82 Long term (current) use of aspirin; Z79.899 Other long term (current) drug therapy ==

== ENCOUNTER → 2019-12-06 | Outpatient (CLI) | payer OTHER | LOC: SJCVC 09:58 | PROVIDERS: ATTEND Internal Medicine Cardiovascular Disease | DX: I44.0 Atrioventricular block, first degree (principal); R00.1 Bradycardia, unspecified; R94.31 Abnormal electrocardiogram [ECG] [EKG]; I12.0 Hypertensive chronic kidney disease with stage 5 chronic kidney disease or end stage renal disease; N18.6 End stage renal disease; I73.9 Peripheral vascular disease, unspecified; M10.9 Gout, unspecified; E78.5 Hyperlipidemia, unspecified; F17.210 Nicotine dependence, cigarettes, uncomplicated; Z79.82 Long term (current) use of aspirin; Z79.899 Other long term (current) drug therapy ==

== ENCOUNTER → 2019-12-07 | Outpatient (CLI) | payer OTHER | LOC: CAT 15:09 | PROVIDERS: ATTEND Internal Medicine Cardiovascular Disease | DX: Z13.6 Encounter for screening for cardiovascular disorders (principal); I25.10 Atherosclerotic heart disease of native coronary artery without angina pectoris; E78.00 Pure hypercholesterolemia, unspecified ==

== ENCOUNTER 2020-03-29 22:00 | Emergency (ER) | payer OTHER ==
[~2020-03-29] VITALS: Ht 182.9 cm; Wt 83.9 kg
[2020-03-29] MEDS ORDERED: CARVEDILOL25 MG PO (22:12)
[2020-03-29] MEDS ORDERED: DOXYCYCLINE 10100 M2 PO (22:13)
[2020-03-29] MEDS ORDERED: HYDROCODON-ACE1 EAC7 PO (22:13)
[2020-03-29] MEDS ORDERED: KEFLEX500 M1 PO (22:14)
[2020-03-29 23:34] VITALS: BP 194/66
== END 2020-03-29 23:40 | disposition home or self-care (01) ==
LOC: ER 22:00
DX: Z48.01 Encounter for change or removal of surgical wound dressing (principal); I12.9 Hypertensive chronic kidney disease with stage 1 through stage 4 chronic kidney disease, or unspecified chronic kidney disease; N18.30 Chronic kidney disease, stage 3 unspecified; F17.210 Nicotine dependence, cigarettes, uncomplicated; Z79.899 Other long term (current) drug therapy; Z79.82 Long term (current) use of aspirin; Z79.2 Long term (current) use of antibiotics

== ENCOUNTER → 2020-05-03 | Outpatient (CLI) | payer OTHER ==
[~2020-05-03] MED LIST changes: +BENICAR40 MG PO; +CARVEDILOL25 MG PO; +DOXYCYCLINE 10100 M2 PO; +HYDROCODON-ACE1 EAC7 PO; +KEFLEX500 M1 PO; +NORVASC 2.5 MG2.5 M1 PO; +PLAVIX 75 MG TA75 MG PO; +RENAL-VITE TAB0.8 MG PO; +RENVELA0.8 GM PO; +RENVELA800 MG PO
== END ==
LOC: SJCVCIMAG 07:52
PROVIDERS: ATTEND Internal Medicine Cardiovascular Disease
DX: I65.23 Occlusion and stenosis of bilateral carotid arteries (principal); I44.0 Atrioventricular block, first degree; I49.3 Ventricular premature depolarization; I73.9 Peripheral vascular disease, unspecified; M79.604 Pain in right leg; M79.605 Pain in left leg; I25.10 Atherosclerotic heart disease of native coronary artery without angina pectoris; I77.9 Disorder of arteries and arterioles, unspecified; I12.0 Hypertensive chronic kidney disease with stage 5 chronic kidney disease or end stage renal disease; N18.6 End stage renal disease; R60.9 Edema, unspecified; M10.9 Gout, unspecified; E78.5 Hyperlipidemia, unspecified; F17.210 Nicotine dependence, cigarettes, uncomplicated; E78.00 Pure hypercholesterolemia, unspecified; Z98.890 Other specified postprocedural states; Z79.82 Long term (current) use of aspirin; Z79.899 Other long term (current) drug therapy

== ENCOUNTER → 2020-05-10 | Outpatient (CLI) | payer OTHER ==
[~2020-05-10] VITALS: Ht 182.9 cm; Wt 80.7 kg
[2020-05-10 08:01] VITALS: BP 153/39
[2020-05-10 08:44] LABS: HEMATOCRIT 23.4 % (42.0-52.0); HEMOGLOBIN 7.5 gm/dL (14.0-18.0); MCH 29.7 pg (26.0-34.0); MCHC 32.1 g/dL (28.0-37.0); MCV 92.2 fL (80.0-100.0); RBC 2.53 mil/uL (4.50-6.00); RDW 19.3 % (10.5-14.5); WBC 5.5 thou/uL (4.0-11.0)
[2020-05-10 08:52] LABS: CREATININE 6.2 mg/dL (0.7-1.3); POTASSIUM 4.7 mmol/L (3.5-5.1)
--- NOTE | 2020-05-10 13:20 | CATHLAB ---
[facility] [place] [address] INVASIVE PROCEDURE REPORT Name: DEBBIE GUTIERREZ III Room #: REG ABIGAIL Evans.#: [id number] Admission: 05/10/20 Attend Phys: Tao Bowen MD Discharge: Date of : 43 Report #: [id number] THIS REPORT FOR: cc: FAM - No family physician/PCP FAM - No family physician/PCP Keith Carson MD ~ APPROVED REPORT Study performed: 05/10/2020 11:31:34 Patient Details Patient Status: Out-Patient Room #: The patient is a 75 year-old male Event Personnel Keith Carson Insulator Helper, Ale Moore Patterson, Kirsten RN RN, Lorena Adamson RTR Monitor Procedures Performed Left Heart Cath w/or w/o Coronaries [id number] [facility] Hemostasis w/ Mynx 11726 Initial Mod Sed Same Phys/QHP Gr5y 926597 56830 Mod Sed Same Phys/QHP Ea 425704 Indication Dyspnea, Positive stress test, Pre-op clearance Risk Factors Peripheral Vascular Disease, Hypercholesterolemia, HypertensionRenal Failure Procedure Narrative The was infiltrated with 1% Lidocaine subcutaneous anesthesia. A SHEATH BRITE-TIP 6F X 11CM ([id number]) sheath was inserted into the RFA^. Coronary angiography was performed using coronary diagnostic catheters. The right coronary system was accessed and visualized with a JR4 catheter. The left coronary system was accessed and visualized with a JL4 catheter. Closure device was deployed with a Fr MYNXGRIP 6/7F [id number]. The patient tolerated the procedure well and there were no complications associated with the procedure. There was no hematoma. Intraoperative Conscious Sedation Sedation start time: 9:57 Case end Time: 12:07 [facility] [place] [address] INVASIVE PROCEDURE REPORT Name: JHRYNEDEBBIE [facility] Room #: REG [facility]#: [id number] Admission: 05/10/20 Attend Phys: Tao Bwoen, Discharge: Date of : 43 Report #: [id number] Fentanyl 100 mcg Versed 1 mg Sedation totals and contrast totals are a combination of a Heart Cath and a Runoff procedure. Fluoro Time: 16.37 minutes Dose: DAP 6242.20 cGycm2 2229 mGy Contrast Type and Amount: Visipaque 359 ml Coronary Angiography The patient's coronary anatomy is left dominant. Diagnostic Cath Left Main The left main artery is a large-caliber vessel with mild disease distally. LAD The LAD is a moderate-sized caliber vessel, with calcifications in the proximal and mid segments. The vessel traverses the anterior wall and wraps around the apex. There is a moderate stenosis in the proximal segment, 50%. Diagonal 1 There is a moderate-sized caliber vessel, with mild disease proximally. Circumflex The left circumflex artery is a dominant vessel with a severe occlusion in the proximal segment, 70%. There is mild diffuse disease in the midsegment. OM1 This is a moderate-sized caliber vessel with a high takeoff off the left circumflex artery. Divides into 2 branches at the midportion. In the proximal segment, there is a severe occlusion of 80%. OM2 This is a moderate-sized caliber vessel with a borderline stenosis in the proximal segment, 60%. Recommend medical therapy. L PDA This is a small to moderate-sized caliber vessel, patent with no flow-limiting lesions. Right Coronary This is a small, nondominant vessel with mild disease proximally. Left Ventriculography Left Ventriculography was not performed. Ejection Fraction was 50-55% based off patient's Nuclear Cardiac Stress Test. An LVEDP was measured and there is no gradient across the outflow tract. Hemodynamics The aortic pressure is 154/50 mmHg with a mean of 106 mmHg. The left ventricular pressure is 159/10 mmHg with a mean of mmHg. The left ventricular end diastolic pressure is 32 mmHg. PCI Technique [facility] [address] [place] [address] INVASIVE PROCEDURE REPORT Name: DEBBIE GUTIERREZ [facility] Room #: REG Homero#: [id number] Admission: 05/10/20 Attend Phys: aTo Bowen, Discharge: Date of : 43 Report #: [id number] Percutaneous coronary intervention was performed on the Common iliac. Conclusion 1. There are severe occlusions in the left circumflex and first obtuse marginal arteries. 2. There is a moderate stenosis in the proximal LAD. 3. There is a borderline stenosis in the second obtuse marginal artery, recommend medical therapy. 4. There is normal LV systolic function. 5. Recommend PCI and aggressive risk factor management. <ELECTRONICALLY SIGNED> By: Keith Carson MD 05/10/20 1320 19 19 Keith Carson MD /INF
== END | disposition home or self-care (01) ==
LOC: CATH 07:27
PROVIDERS: ATTEND Nuclear Medicine Nuclear Cardiology
DX: R94.39 Abnormal result of other cardiovascular function study (principal); I25.10 Atherosclerotic heart disease of native coronary artery without angina pectoris; I70.212 Atherosclerosis of native arteries of extremities with intermittent claudication, left leg; I70.1 Atherosclerosis of renal artery; G45.8 Other transient cerebral ischemic attacks and related syndromes; I12.9 Hypertensive chronic kidney disease with stage 1 through stage 4 chronic kidney disease, or unspecified chronic kidney disease; N18.30 Chronic kidney disease, stage 3 unspecified; R06.00 Dyspnea, unspecified; M10.9 Gout, unspecified; F17.210 Nicotine dependence, cigarettes, uncomplicated; D50.9 Iron deficiency anemia, unspecified; Z98.890 Other specified postprocedural states; Z79.899 Other long term (current) drug therapy

== ENCOUNTER 2020-05-17 07:51 | Observation (INO) | payer OTHER ==
[~2020-05-17] VITALS: Ht 182.9 cm; Wt 81.6 kg
[2020-05-17 08:27] VITALS: BP 149/43
[2020-05-17 08:48] LABS: HEMATOCRIT 21.7 % (42.0-52.0); MCH 29.6 pg (26.0-34.0); MCHC 32.4 g/dL (28.0-37.0); MCV 91.3 fL (80.0-100.0); RBC 2.37 mil/uL (4.50-6.00); RDW 18.1 % (10.5-14.5)
[2020-05-17 09:00] LABS: CREATININE 5.6 mg/dL (0.7-1.3); POTASSIUM 4.7 mmol/L (3.5-5.1)
[2020-05-17 09:45] VITALS: BP 169/68
[2020-05-17 11:58] VITALS: BP 166/62
[2020-05-17 13:38] LABS: HEMATOCRIT 26.1 % (42.0-52.0); HEMOGLOBIN 8.6 gm/dL (14.0-18.0)
[2020-05-17 17:15] VITALS: BP 188/69
[2020-05-17 20:09] VITALS: BP 146/40
[2020-05-17 23:37] VITALS: BP 165/48
[2020-05-18 04:13] LABS: HEMATOCRIT 24.3 % (42.0-52.0); MCH 29.7 pg (26.0-34.0); MCV 89.9 fL (80.0-100.0); RBC 2.71 mil/uL (4.50-6.00); RDW 16.8 % (10.5-14.5); WBC 7.1 thou/uL (4.0-11.0)
[2020-05-18 04:35] VITALS: BP 187/51
[2020-05-18 06:30] VITALS: BP 188/68
[2020-05-18 08:00] VITALS: BP 181/108
[2020-05-18] MEDS ORDERED: ELIQUIS5 MG PO (08:13)
[2020-05-18 11:35] VITALS: BP 160/77
[2020-05-18 11:40] VITALS: BP 181/108
== END 2020-05-18 13:26 | disposition home or self-care (01) ==
LOC: CATH 07:51 → 2N 09:59 → CATH 12:10 → 2N 05-18 13:26
PROVIDERS: Nurse Practitioner Adult Health; ADMIT Internal Medicine Cardiovascular Disease; ATTEND Internal Medicine Cardiovascular Disease
DX: Q27.8 Other specified congenital malformations of peripheral vascular system (principal); I25.10 Atherosclerotic heart disease of native coronary artery without angina pectoris; D64.9 Anemia, unspecified; I12.0 Hypertensive chronic kidney disease with stage 5 chronic kidney disease or end stage renal disease; N18.6 End stage renal disease; M10.9 Gout, unspecified; I82.409 Acute embolism and thrombosis of unspecified deep veins of unspecified lower extremity; E78.5 Hyperlipidemia, unspecified; Z86.73 Personal history of transient ischemic attack (TIA), and cerebral infarction without residual deficits; Z79.899 Other long term (current) drug therapy; Z87.891 Personal history of nicotine dependence; Z79.82 Long term (current) use of aspirin; Z99.2 Dependence on renal dialysis
CPT/HCPCS: 32100

== ENCOUNTER 2020-05-20 00:12 | Inpatient (IN) | payer OTHER ==
[2020-05-20] VITALS (8 sets, daily range): BP systolic 104–206; BP diastolic 35–123
[~2020-05-20] VITALS: Ht 182.9 cm; Wt 85.4 kg
[~2020-05-20 00:12] MED LIST changes: +ELIQUIS5 MG PO
[2020-05-20] MEDS ORDERED: CARVEDILOL25 MG PO (00:36)
[2020-05-20] MEDS ORDERED: AMLODIPINE BESY10 MG PO (00:36)
[2020-05-20] MEDS ORDERED: RENAL-VITE TAB0.8 MG PO (00:37)
[2020-05-20] MEDS ORDERED: BENICAR40 MG PO (00:37)
[2020-05-20] MEDS ORDERED: RENVELA0.8 GM PO (00:37)
[2020-05-20 00:55] LABS: ABSOLUTE NEUTROPHILS 5.3 thou/uL (1.4-8.2); RBC 1.81 mil/uL (4.50-6.00)
[2020-05-20 00:56] LABS: BASOPHILS 0.8 % (0.0-2.0); EOSINOPHILS 3.8 % (0.0-3.0); LYMPHOCYTES 23.8 % (24.0-44.0); MCH 30.3 pg (26.0-34.0); MCHC 33.6 g/dL (28.0-37.0); MCV 90.2 fL (80.0-100.0); MONOCYTES 7.6 % (1.0-8.0); PLATELET COUNT 243 thou/uL (150-400); RDW 16.8 % (10.5-14.5); WBC 8.3 thou/uL (4.0-11.0)
[2020-05-20 01:00] LABS: ANION GAP 12 mmol/L (7-16); BUN 83 mg/dL (7-18); CALCIUM 8.7 mg/dL (8.5-10.1); CHLORIDE 99 mmol/L (98-107); CO2 25 mmol/L (21-32); GLUCOSE 114 mg/dL (74-106); POTASSIUM 5.4 mmol/L (3.5-5.1); SODIUM 136 mmol/L (136-145)
[2020-05-20 01:03] LABS: CREATININE 7.2 mg/dL (0.7-1.3); HEMATOCRIT 16.3 % (42.0-52.0); HEMOGLOBIN 5.5 gm/dL (14.0-18.0)
[2020-05-20 01:07] LABS: APTT 22.5 Seconds (24.5-32.8); PROTIME 10.3 Seconds (9.3-11.4)
[2020-05-20 01:11] LABS: ALBUMIN 2.9 g/dL (3.4-5.0); AMYLASE 102 U/L (25-115); DIRECT BILIRUBIN < 0.1 mg/dL (<0.1-0.2); LIPASE 356 U/L (73-393); MAGNESIUM 2.2 mg/dL (1.8-2.4); PHOSPHORUS 4.7 mg/dL (2.6-4.7); SGOT 13 U/L (15-37); SGPT 9 U/L (16-63); TOTAL BILIRUBIN 0.4 mg/dL (0.2-1.0); TOTAL PROTEIN 5.8 g/dL (6.4-8.2); TROPONIN-I <0.06 ng/mL (<0.06)
--- NOTE | 2020-05-20 14:17 | EKG ---
[address] [address] ELECTROCARDIOGRAM REPORT Name: DEBBIE GUTIERREZ III Room #: 170-5 ADM IN ..#: [id number] Admission: 05/20/20 Attend Phys: Memo Copeland MD Discharge: Date of : 43 Report #: [id number] [facility] ED Test Date: 2020-05-20 Test Time: 00:29:21 Pat Name: DEBBIE GUTIERREZ Department: Room: 170 Gender: M Spa Assistant Manager: NERI : 1945 Requested By: Brenton Faustin Order Number: [id number] MD: Clemente Hill Measurements Intervals [place] Rate: 73 P: 71 SD: 254 QRS: 86 QRSD: 99 T: 86 QT: 413 QTc: 456 Interpretive Statements Sinus rhythm Prolonged SD interval Borderline right axis deviation Probable left ventricular hypertrophy Compared to ECG 04/22/2018 18:31:27 Junctional bradycardia no longer present Electronically Signed On 05-20-2020 14:17:40 [employer]KE [employer]INKEY by Clemente Hill [email or web address] <ELECTRONICALLY SIGNED> By: Clemente Hill MD, [facility] 05/20/20 1417 0029 0029 Clemente Hill MD, [facility] /EPI
[2020-05-20 17:56] LABS: HEMATOCRIT 23.7 % (42.0-52.0); HEMOGLOBIN 7.9 gm/dL (14.0-18.0)
--- NOTE | 2020-05-20 19:24 | NUR ---
Called to give report but MERY Caraballo currently getting report on another patient and this RN was told MERY Caraballo will call back
[2020-05-21] VITALS (7 sets, daily range): BP systolic 108–188; BP diastolic 46–70
--- NOTE | 2020-05-21 02:32 | NUR ---
RECEIVED REPORT FROM MONY CRAWFORD RN.PATIENT ARRIVED TO ROOM 204 AROUND 1999.PT A/O X 4.DENIES PAIN.UP WITH STANDBY ASSIST TO THE BATHROOM.BM X 1;PT STATES COLOR IS BLACK,UNABLE TO SEE STOOL.PT NPO.ON PROTONIX GTT.BP ELEVATED. HYDRALAZINE GIVEN.MONITOR SHOWS SR,SB.POC CONTINUED.
[2020-05-21 03:26] LABS: CALCIUM 8.7 mg/dL (8.5-10.1)
[2020-05-21 03:32] LABS: CREATININE 8.7 mg/dL (0.7-1.3); POTASSIUM 6.8 mmol/L (3.5-5.1)
--- NOTE | 2020-05-21 14:33 | NUR ---
CONSENT FOR EGD OBTAINED AND PLACED ON PT CHART.
--- NOTE | 2020-05-21 14:34 | NUR ---
PT ADDED HIS SISTER DAVE BRANDON DESIGNATED VISITOR . HER PHONE NUMBER IS [phone].
--- NOTE | 2020-05-21 18:35 | NUR ---
PT HAD DARK BLACK STOOLS X2 THIS SHIFT. GI RETAIL PERSONAL BANKER WAS NOTIFIED AND STATED THEY WILL PLAN FOR EGD AT 1300 TOMORROW 05/22/20. GI PHYSICIAN SPOKE WITH PT AND PT'S SISTER. BOTH WERE MADE AWARE OF EGD PLAN FOR TOMORROW.
[2020-05-22] VITALS (10 sets, daily range): BP systolic 122–159; BP diastolic 47–76
[2020-05-22 04:27] LABS: MCH 30.5 pg (26.0-34.0); WBC 6.9 thou/uL (4.0-11.0)
[2020-05-22 04:29] LABS: MCHC 34.8 g/dL (28.0-37.0); MCV 87.7 fL (80.0-100.0); RBC 1.56 mil/uL (4.50-6.00); RDW 16.3 % (10.5-14.5)
[2020-05-22 04:35] LABS: HEMATOCRIT 13.6 % (42.0-52.0); HEMOGLOBIN 4.7 gm/dL (14.0-18.0)
--- NOTE | 2020-05-22 07:44 | NUR ---
PATIENT HAS BEEN NPO FOR EGD TODAY.THIS MORNING HGB AND HEMATOCRIT IS LOW.TRANSFUSING 1ST UNIT ORDERED.NO REACTIONS SO FAR.MONITOR SHOWS SR.POC CONTINUED.
[2020-05-22 08:28] LABS: CALCIUM 8.1 mg/dL (8.5-10.1); CREATININE 5.8 mg/dL (0.7-1.3); POTASSIUM 5.2 mmol/L (3.5-5.1)
[2020-05-22 14:20] LABS: HEMATOCRIT 21.9 % (42.0-52.0)
[2020-05-22 14:23] LABS: HEMOGLOBIN 7.4 gm/dL (14.0-18.0)
--- NOTE | 2020-05-22 18:13 | NUR ---
Met with patient who admits with Gi bleed. 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 He uses no assistive device. He cont to drive. He resides in ranch style home. Dializes MWF at [facility] and drives himself. Patient does not have a PCP. He reports Dr aGrcia is finding him a PCP. Maya matthews.
--- NOTE | 2020-05-22 19:59 | NUR ---
PT CARE ASSUMED AT 0700. ASSESSMENTS CHARTED. MEDICATION CHARTED. RW IV. KAY IV. SINUS RHYTHM. PROTONIX GTT 25 ML/HR. US AND EGD AT NOON; 2 HEALING ULCERS, BIOPSIES ON 2 POLYPS AND H PYLORI. DIALYSIS MWF. 2 UNITS RBC GIVEN IN AM.
[2020-05-22 21:05] LABS: HEMATOCRIT 20.5 % (42.0-52.0); HEMOGLOBIN 6.9 gm/dL (14.0-18.0)
[2020-05-23 04:33] VITALS: BP 196/65
--- NOTE | 2020-05-23 05:12 | NUR ---
ASSESSMENTS CHARTED, MEDS CHARTED GIVEN. PATIENT RESTING IN BED OR SITTING IN A CHAIR DURING SHIFT. DENIED PAIN. FEELS BETTER AFTER THE BLOOD INFUSIONS DURING THE DAY. STILL ON PROTONIX GTT. PATIENT SCHEDULED FOR DIALYSIS TODAY, RIGHT UPPER ARM FISTULA. EGD SHOWED TWO HEALING ULCERS. ULTRASOUND OF LOWER EXTREMITIES SHOWED NON-OCCLUSIVE THROMBUS. REFUSED EVENING MED. FALL PRECAUTIONS IN PLACE.
[2020-05-23 06:52] LABS: HEMATOCRIT 22.6 % (42.0-52.0); HEMOGLOBIN 7.7 gm/dL (14.0-18.0)
[2020-05-23 07:39] VITALS: BP 203/84
[2020-05-23 08:29] LABS: CALCIUM 9.1 mg/dL (8.5-10.1); POTASSIUM 5.8 mmol/L (3.5-5.1)
[2020-05-23 08:35] LABS: CREATININE 8.2 mg/dL (0.7-1.3)
[2020-05-23 12:00] VITALS: BP 153/73
[2020-05-23 13:04] LABS: HEMOGLOBIN 6.7 gm/dL (14.0-18.0)
[2020-05-23 13:21] LABS: HEMATOCRIT 19.6 % (42.0-52.0)
[2020-05-23 13:48] VITALS: BP 120/67; BP 157/101
[2020-05-23 15:12] VITALS: BP 130/70
--- NOTE | 2020-05-23 17:48 | NUR ---
ASSUMED CARE SHIFT CHANGE. ASSESSMENTS CHARTED.MEDS GIVEN. VSS. DENIES PAIN. PT HAD BLOODY STOOL THIS AM, GI NOTIFIED, PROTONIX GTT CONTINUES. DIALYSIS TODAY WITH 1L REMOVED. HGB &HCT LOW, PT TRANSFUSED 1 UNIT PRBC THIS SHIFT. SPOUSE AT BEDSIDE AND UPDATED ON POC. PLAN FOR POSSIBLE FOLLOW UP EGD. PT CURRENTLY RESTING IN BED. DENIES NEEDS. CONTINUING POC. WILL PASS ON REPORT TO NOC RN.
[2020-05-23 19:55] VITALS: BP 129/41
[2020-05-23 21:11] LABS: HEMATOCRIT 20.7 % (42.0-52.0)
[2020-05-24 04:01] VITALS: BP 152/47
[2020-05-24 05:13] LABS: HEMATOCRIT 20.2 % (42.0-52.0); MCH 29.9 pg (26.0-34.0); MCHC 34.4 g/dL (28.0-37.0); RBC 2.33 mil/uL (4.50-6.00); RDW 15.7 % (10.5-14.5); WBC 4.8 thou/uL (4.0-11.0)
[2020-05-24 05:52] LABS: CALCIUM 8.5 mg/dL (8.5-10.1)
[2020-05-24 05:54] LABS: CREATININE 4.8 mg/dL (0.7-1.3); POTASSIUM 4.5 mmol/L (3.5-5.1)
[2020-05-24 08:03] VITALS: BP 190/60
[2020-05-24 11:16] VITALS: BP 131/48
[2020-05-24 11:22] VITALS: BP 157/65; BP 161/66
--- NOTE | 2020-05-24 13:06 | NUR ---
PT IS AXOX4, PLEASANT. CONSENT SIGNED FOR BLOOD PRODUCT THIS AM. RECEIVING ONE (1) UNIT RBCS. CONSENT SIGNED FOR IVC PLACEMENT PROCEDURE THIS AFTERNOON. PT IS UP AD WENDY TO TOILET. PT DENIES PAIN, CURRENTLY RESTING COMFORTABLY IN BED. PT SISTER AT THE BEDSIDE. NO CONCERNS AT THIS TIME.
--- NOTE | 2020-05-24 14:16 | NUR ---
BLOOD TRANSUFION ENDED AT 1410. PT TAKEN BY IR TO CONDUCT IVC FILTER PLACEMENT PROCEDURE. 400ML BLOOD INFUSED. 30 ML NS FLUSHED.
[2020-05-24 15:33] VITALS: BP 173/53
--- NOTE | 2020-05-24 15:44 | NUR ---
PT RETURNED TO CCU AT 1425. BEDREST FOR THREE (3) HOURS POST PROCEDURE, HOB 45 DEGREES. PT IS AXOX4, RESTING COMFORTABLY. PT SISTER AT BEDSIDE. FALL PRECAUTIONS IN PLACE. NO CONCERNS AT THIS TIME.
[2020-05-24 18:06] LABS: HEMATOCRIT 25.2 % (42.0-52.0); HEMOGLOBIN 8.5 gm/dL (14.0-18.0)
--- NOTE | 2020-05-24 18:29 | NUR ---
PT IS AXOX4, PLEASANT, DENIES PAIN, AFEBRILE. SBP 150-170s DUE TO END STAGE RENAL DISEASE. PT RECEIVING PROTONIX AT 25ML/HR. PT COMPLETED 3 HOURS BEDREST POST PROCEDURE. UP AD WENDY TO TOILET; MEDIUM BM WITH DARK STOOL. PT RESTING COMFORTABLY. POC: CONTINUE TO MONITOR H+H, BP/HR, STOOLS. NO CONCERNS AT THIS TIME.
[2020-05-24 19:41] VITALS: BP 147/50
--- NOTE | 2020-05-24 22:10 | PATH ---
[facility] [place] [address] PATHOLOGY RPT PROCEDURE Name: DEBBIE GUTIERREZ [facility] Room #: 204-P ADM IN M.R.#: [id number] Admission: 05/20/20 Date of : 43 Discharge: Report #: [id number] Path Case #: [id number] [facility] Accession Number: [id number] . 01 Material submitted: . PART A: gastrointestinal site - DUODENAL POLYPS PART B: gastrointestinal site - GASTRIC ULCER BIOPSY PART C: gastrointestinal site - RANDOM GASTRIC BIOPSY R/O H.PYLORI . 01 Clinician provided ICD-10: *del . 02 Diagnosis: A. Small bowel "duodenal polyps", endoscopic biopsy: - Nodular peptic duodenitis; negative for dysplasia and malignancy. - Jp's gland hyperplasia. . B. Stomach "gastric ulcer", endoscopic biopsy: - Gastric antral and oxyntic mucosa with features of reactive gastropathy, focal mild chronic inflammation, and vascular ectasia. - Negative for intestinal metaplasia, dysplasia, and malignancy. - Negative for Helicobacter pylori. . C. Large bowel "random gastric", endoscopic biopsy: - Gastric antral and oxyntic mucosa with features of reactive gastropathy and moderate background chronic inflammation. - Negative for intestinal metaplasia, dysplasia, and malignancy. - Negative for Helicobacter pylori. . (MLK:patsy; 05/24/2020) S 05/24/2020 2152 Local . 02 Electronically signed: . Brody White MD, Pathologist NPI- [id number] . 01 Gross description: . A. The specimen is received in formalin, labeled "Debbie Gutierrez", "biopsy duodenal polyps". Received are multiple segments of pale keenan soft tissue ranging in size from 0.2 cm to 0.3 cm. The specimen is entirely submitted in cassette A1. . B. The specimen is received in formalin, labeled "Debbie Gutierrez", "biopsy gastric ulcer". Received are multiple segments of pale keenan soft tissue ranging in size from 0.1 cm to 0.2 cm. The specimen is entirely submitted in cassette B1. . [address] [address] PATHOLOGY RPT PROCEDURE Name: DEBBIE GUTIERREZ [facility] Room #: 204-P [facility] IN M.R.#: [id number] Admission: 05/20/20 Date of : 43 Discharge: Report #: [id number] Path Case #: [id number] C. The specimen is received in formalin, labeled "[place], Debbie", "random gastric biopsy rule out H. pylori". Received are multiple segments of pale keenan soft tissue ranging in size from 0.1 cm to 0.3 cm. The specimen is entirely submitted in cassette C1.(SNA; 05/23/2020) BIPIN/CLAIRE 05/23/2020 1611 Local . 02 Microscopic: . Immunohistochemical stain results (properly controlled) . - Helicobacter pylori (B1 and C1) - Negative for organisms. . (MLK:patsy; 05/24/2020) . 02 Pathologist provided ICD-10: K29.80, K29.50, K31.9 . 02 CPT . 606188, 859779, 341384, H15751 Specimen Comment: A courtesy copy of this report has been sent to [phone] Specimen Comment: Report sent to Performed at: 01 [facility] [address] [place] [address] [address], [place], [place] [id number] MD Ari Sommer MD Phone: [phone] Performed at: [address] [id number] MD Julieth Borden MD Phone: [phone]
[2020-05-25 00:26] VITALS: BP 160/50
--- NOTE | 2020-05-25 03:45 | NUR ---
Assumed pt care at 1900. Pt is alert and oriented, no sign of distress noted in pt. At the start of shift, pt denies pain to right neck. But late, patient verbalized pain to right neck and arm. Pain med administered to pt. Pt expressed pain relief with med administration. Pt is ambulatory. Assessment completed and documented. Scheduled meds administered. No acute event overnight. Continue to monitor. No further needs at this time.
[2020-05-25 03:58] VITALS: BP 152/41
--- NOTE | 2020-05-25 07:38 | NUR ---
ASSUMED PT CARE. PT WAS SLEEPING. ASSESSMENT PERFORMED AND CHARTED. VSS. WILL CONTINUE TO MONITOR.
[2020-05-25 08:00] VITALS: BP 177/66
[2020-05-25] MEDS ORDERED: ASA81BEC PO (10:09)
[2020-05-25] MEDS ORDERED: PROTONIX40 M2 PO (10:09)
[2020-05-25] MEDS ORDERED: ELIQUIS5 MG PO (10:09)
--- NOTE | 2020-05-25 11:42 | NUR ---
Pt dcing home today after dialysis. Jasiel ZUNIGA notified that pt will resume his normal outpt schedule on Thursday. Dc engineering department chair to fax them his summary and instructions. No other cm interventions indicated at this time. Pt dcing home via family car. No hh or dme indicated.
[2020-05-25 11:43] VITALS: BP 177/66
[2020-05-25 15:37] VITALS: BP 177/66
== END 2020-05-25 16:10 | disposition home or self-care (01) | DRG 377 ==
LOC: ER 00:12 → EROBS 01:31 → 2N 01:31
PROVIDERS: Emergency Medicine; Family Medicine; Hospitalist; Internal Medicine; Nurse Practitioner; Nurse Practitioner Family; ADMIT Hospitalist; ATTEND Hospitalist
DX: K25.4 Chronic or unspecified gastric ulcer with hemorrhage (principal); N18.6 End stage renal disease; U07.1 COVID-19; I82.411 Acute embolism and thrombosis of right femoral vein; D62 Acute posthemorrhagic anemia; G45.9 Transient cerebral ischemic attack, unspecified; E46 Unspecified protein-calorie malnutrition; I12.0 Hypertensive chronic kidney disease with stage 5 chronic kidney disease or end stage renal disease; M10.9 Gout, unspecified; I25.10 Atherosclerotic heart disease of native coronary artery without angina pectoris; E87.5 Hyperkalemia; F17.210 Nicotine dependence, cigarettes, uncomplicated; I73.9 Peripheral vascular disease, unspecified; Z60.2 Problems related to living alone; G47.00 Insomnia, unspecified; E78.00 Pure hypercholesterolemia, unspecified; R53.81 Other malaise; I72.9 Aneurysm of unspecified site; Z95.820 Peripheral vascular angioplasty status with implants and grafts; Z95.5 Presence of coronary angioplasty implant and graft; Z82.49 Family history of ischemic heart disease and other diseases of the circulatory system; Z83.6 Family history of other diseases of the respiratory system; Z84.1 Family history of disorders of kidney and ureter; Z68.25 Body mass index [BMI] 25.0-25.9, adult; Z86.010 Personal history of colon polyps; Z80.0 Family history of malignant neoplasm of digestive organs; Z79.82 Long term (current) use of aspirin; Z79.899 Other long term (current) drug therapy; Z99.2 Dependence on renal dialysis
CPT/HCPCS: 10081; 32100; 62110; 62900; 70005

== ENCOUNTER → 2020-05-31 | Outpatient (CLI) | payer OTHER ==
[~2020-05-31] MED LIST changes: +ASA81BEC PO; +PROTONIX40 M2 PO
== END ==
LOC: SJCVC 10:24
PROVIDERS: ATTEND Internal Medicine Cardiovascular Disease
DX: R94.31 Abnormal electrocardiogram [ECG] [EKG] (principal); R00.1 Bradycardia, unspecified; I25.10 Atherosclerotic heart disease of native coronary artery without angina pectoris; I77.9 Disorder of arteries and arterioles, unspecified; I80.8 Phlebitis and thrombophlebitis of other sites; R60.9 Edema, unspecified; E78.00 Pure hypercholesterolemia, unspecified; I73.9 Peripheral vascular disease, unspecified; I13.11 Hypertensive heart and chronic kidney disease without heart failure, with stage 5 chronic kidney disease, or end stage renal disease; N18.5 Chronic kidney disease, stage 5; D64.9 Anemia, unspecified; K25.4 Chronic or unspecified gastric ulcer with hemorrhage; R60.0 Localized edema; M10.9 Gout, unspecified; E78.5 Hyperlipidemia, unspecified; F17.210 Nicotine dependence, cigarettes, uncomplicated; Z79.899 Other long term (current) drug therapy; Z72.89 Other problems related to lifestyle

== ENCOUNTER 2020-06-05 10:56 | Emergency (ER) | payer OTHER ==
[~2020-06-05] VITALS: Ht 182.9 cm; Wt 83.9 kg
[2020-06-05 11:26] LABS: HEMATOCRIT 22.2 % (42.0-52.0); HEMOGLOBIN 7.3 gm/dL (14.0-18.0); MCH 30.7 pg (26.0-34.0); PLATELET COUNT 276 thou/uL (150-400); RBC 2.39 mil/uL (4.50-6.00); RDW 18.5 % (10.5-14.5)
[2020-06-05 11:38] LABS: CALCIUM 8.8 mg/dL (8.5-10.1); CREATININE 6.8 mg/dL (0.7-1.3); POTASSIUM 4.3 mmol/L (3.5-5.1)
[2020-06-05 11:41] LABS: APTT 24.9 Seconds (24.5-32.8); PROTIME 10.6 Seconds (9.3-11.4)
[2020-06-05 11:45] LABS: ALBUMIN 3.1 g/dL (3.4-5.0); DIRECT BILIRUBIN 0.1 mg/dL (<0.1-0.2); TOTAL BILIRUBIN 0.5 mg/dL (0.2-1.0); TOTAL PROTEIN 6.5 g/dL (6.4-8.2)
[2020-06-05] MEDS ORDERED: ELIQUIS2.5 MG PO (11:47)
[2020-06-05 13:00] LABS: ANISOCYTOSIS 1+; PLATELET ESTIMATE NORMAL
[2020-06-05 13:58] VITALS: BP 166/59; BP 177/66; BP 179/58; BP 182/59; BP 192/92
--- NOTE | 2020-06-05 15:38 | EKG ---
[place] [address] [place] [address] ELECTROCARDIOGRAM REPORT Name: DEBBIE GUTIERREZ III [id number] Admission: 06/05/20 Attend Phys: Discharge: Date of : 43 Report #: [id number] [facility] ED Test Date: 2020-06-05 Test Time: 11:16:27 Pat Name: DEBBIE GUTIERREZ Department: Room: Gender: M Galley Stripper: CHARLENE : 1945 Requested By: Mustapha Sawant Order Number: [id number] MD: Ty Crystal Measurements Intervals [place] Rate: 65 P: 93 MI: 223 QRS: 98 QRSD: 103 T: 100 QT: 440 QTc: 458 Interpretive Statements Sinus rhythm Prolonged MI interval Right axis deviation Consider left ventricular hypertrophy Nonspecific T abnrm, anterolateral leads Compared to ECG 05/20/2020 00:29:21 No significant changes Electronically Signed On 06-05-2020 15:38:18 CDT by Ty Crystal [email or web address] <ELECTRONICALLY SIGNED> By: Ty Crystal MD, [facility] 06/05/20 1538 15 15 Ty Crystal MD, FACC /EPI
[2020-06-05 16:54] VITALS: BP 192/92
== END 2020-06-05 16:55 | disposition home or self-care (01) ==
LOC: ER 10:56
PROVIDERS: Nurse Practitioner
DX: D64.9 Anemia, unspecified (principal); I25.10 Atherosclerotic heart disease of native coronary artery without angina pectoris; I12.9 Hypertensive chronic kidney disease with stage 1 through stage 4 chronic kidney disease, or unspecified chronic kidney disease; N18.30 Chronic kidney disease, stage 3 unspecified; F17.210 Nicotine dependence, cigarettes, uncomplicated; Z99.2 Dependence on renal dialysis; Z86.73 Personal history of transient ischemic attack (TIA), and cerebral infarction without residual deficits; Z86.2 Personal history of diseases of the blood and blood-forming organs and certain disorders involving the immune mechanism; Z90.89 Acquired absence of other organs; Z79.899 Other long term (current) drug therapy

== ENCOUNTER → 2020-06-28 | Outpatient (CLI) | payer OTHER ==
[~2020-06-28] MED LIST changes: +ELIQUIS2.5 MG PO
== END ==
LOC: SJCVC 10:34
PROVIDERS: ATTEND Internal Medicine Cardiovascular Disease
DX: R94.31 Abnormal electrocardiogram [ECG] [EKG] (principal); I44.0 Atrioventricular block, first degree; I25.10 Atherosclerotic heart disease of native coronary artery without angina pectoris; I12.9 Hypertensive chronic kidney disease with stage 1 through stage 4 chronic kidney disease, or unspecified chronic kidney disease; N18.9 Chronic kidney disease, unspecified; M10.9 Gout, unspecified; R60.9 Edema, unspecified; I73.9 Peripheral vascular disease, unspecified; E78.00 Pure hypercholesterolemia, unspecified; D64.9 Anemia, unspecified; E78.5 Hyperlipidemia, unspecified; F17.210 Nicotine dependence, cigarettes, uncomplicated; Z98.890 Other specified postprocedural states; Z79.899 Other long term (current) drug therapy; Z86.711 Personal history of pulmonary embolism

== ENCOUNTER → 2020-10-02 | Outpatient (CLI) | payer OTHER ==
[~2020-10-02] MED LIST changes: +NORVASC10 MG PO; +ROSUVASTATIN CA10 MG PO; +[UNRECOGNIZED DRUG - OTHER] INJECTION
== END ==
LOC: SJCVC 11:30 → SJCVCIMAG 11:30
PROVIDERS: ATTEND Internal Medicine Cardiovascular Disease
DX: R94.31 Abnormal electrocardiogram [ECG] [EKG] (principal); I44.0 Atrioventricular block, first degree; R00.1 Bradycardia, unspecified; M79.604 Pain in right leg; M79.89 Other specified soft tissue disorders; I73.9 Peripheral vascular disease, unspecified; I82.711 Chronic embolism and thrombosis of superficial veins of right upper extremity; I77.9 Disorder of arteries and arterioles, unspecified; I12.0 Hypertensive chronic kidney disease with stage 5 chronic kidney disease or end stage renal disease; N18.5 Chronic kidney disease, stage 5; E78.00 Pure hypercholesterolemia, unspecified; D64.9 Anemia, unspecified; I80.8 Phlebitis and thrombophlebitis of other sites; R60.9 Edema, unspecified; I25.10 Atherosclerotic heart disease of native coronary artery without angina pectoris; M10.9 Gout, unspecified; F17.210 Nicotine dependence, cigarettes, uncomplicated; Z79.899 Other long term (current) drug therapy; Z95.828 Presence of other vascular implants and grafts

== ENCOUNTER → 2020-10-04 | Outpatient (CLI) | payer OTHER ==
[~2020-10-04] VITALS: Ht 182.9 cm; Wt 84.8 kg
[2020-10-04 07:20] VITALS: BP 147/46
[2020-10-04 09:58] VITALS: BP 157/53
== END | disposition home or self-care (01) ==
LOC: CATH 06:43
PROVIDERS: ATTEND Nuclear Medicine Nuclear Cardiology
DX: Z45.89 Encounter for adjustment and management of other implanted devices (principal); I13.2 Hypertensive heart and chronic kidney disease with heart failure and with stage 5 chronic kidney disease, or end stage renal disease; N18.6 End stage renal disease; I50.30 Unspecified diastolic (congestive) heart failure; I25.10 Atherosclerotic heart disease of native coronary artery without angina pectoris; E78.00 Pure hypercholesterolemia, unspecified; I73.9 Peripheral vascular disease, unspecified; D50.9 Iron deficiency anemia, unspecified; M10.9 Gout, unspecified; F17.210 Nicotine dependence, cigarettes, uncomplicated; Z86.718 Personal history of other venous thrombosis and embolism; Z98.890 Other specified postprocedural states; Z79.899 Other long term (current) drug therapy; Z86.73 Personal history of transient ischemic attack (TIA), and cerebral infarction without residual deficits; Z79.01 Long term (current) use of anticoagulants

== ENCOUNTER → 2020-10-11 | Outpatient (CLI) | payer OTHER | LOC: SJCVCIMAG 08:00 | PROVIDERS: ATTEND Internal Medicine Cardiovascular Disease | DX: I08.3 Combined rheumatic disorders of mitral, aortic and tricuspid valves (principal); I25.10 Atherosclerotic heart disease of native coronary artery without angina pectoris; Z99.2 Dependence on renal dialysis; Z79.899 Other long term (current) drug therapy; Z86.718 Personal history of other venous thrombosis and embolism ==

== ENCOUNTER 2020-10-25 09:16 | Observation (INO) | payer OTHER ==
[~2020-10-25] VITALS: Ht 182.9 cm; Wt 87.1 kg
[2020-10-25] VITALS (12 sets, daily range): BP systolic 162–193; BP diastolic 59–79
[2020-10-25] MEDS ORDERED: CRESTOR10 MG PO (12:12)
[2020-10-25] MEDS ORDERED: RENAL-VITE TAB0.8 MG PO (12:13)
--- NOTE | 2020-10-25 14:15 | EKG ---
[address] [place] [address] ELECTROCARDIOGRAM REPORT Name: DEBBIE GUTIERREZ III Room #: [facility]#: [id number] Admission: 10/25/20 Attend Phys: Keith Carson MD Discharge: Date of : 43 Report #: [id number] [facility] Test Date: 2020-10-25 Test Time: 12:54:23 Pat Name: DEBBIE GUTIERREZ Department: Room: Gender: M Insurance Sales Representative: FSCHWALBE : 1945 Requested By: Hansel Arroyo Order Number: [id number] MD: Ty Crystal Measurements Intervals [place] Rate: 62 P: 82 WY: 285 QRS: 96 QRSD: 106 T: 98 QT: 462 QTc: 470 Interpretive Statements Sinus rhythm Prolonged [place] interval Right axis deviation Consider left ventricular hypertrophy Abnormal T, consider ischemia, lateral leads Compared to ECG 06/05/2020 11:16:27 T-wave abnormality now present Possible ischemia now present Electronically Signed On 10-25-2020 14:15:29 CDT by Ty Crystal [email or web address] <ELECTRONICALLY SIGNED> By: Ty Crystal MD, FAC 10/25/20 1415 1254 1254 Ty Crystal MD, [facility] /EPI
--- NOTE | 2020-10-25 15:02 | CATHLAB ---
[facility] [place] [address] INVASIVE PROCEDURE REPORT Name: DEBBIE GUTIERREZ III Room #: REG ABIGAIL Maki.#: [id number] Admission: 10/25/20 Attend Phys: Keith Carson MD Discharge: Date of : 43 Report #: [id number] THIS REPORT FOR: cc: FAM - No family physician/PCP FAM - No family physician/PCP Keith Carson MD ~ APPROVED REPORT Study performed: 10/25/2020 12:45:47 Patient Details Patient Status: Out-Patient Room #: 208 The patient is a 75 year-old male Event Personnel Keith Carson Ship Rigger, Maureen Flood RN RN, Veronica Whelan RTR, BACKSHOE PERSON Monitor, Lorena Adamson RTR Scrub Procedures Performed Art Access - R femoral artery* SANDRA Place w/wo Plasty Single OM 268964 50479 Initial Mod Sed Same Phys/QHP Gr [id number] 75658 Mod Sed Same Phys/QHP Ea 440520 Hemostasis with Manual pressure Indication Dyspnea, Positive stress test, Pre-op clearance, The patient initially presented for a preop evaluation for renal transplant. A nuclear stress test was indicative for ischemia. He did undergo cardiac catheterization, found to have a codominant left circumflex artery with a severe occlusion. He now presents for a staged PCI involving the proximal left circumflex and proximal OM1 vessels. Risk Factors Peripheral Vascular Disease, Hypercholesterolemia, Coronary Artery DiseaseHypertensionRenal Failure Previous Procedures/Diagnoses Previous Femoral Procedure Procedure Narrative The Right Groin^ was infiltrated with 1% Lidocaine subcutaneous anesthesia. A PINNACLE 6FR Sheath #[id number] sheath was inserted into [facility] [address] [place] [address] INVASIVE PROCEDURE REPORT Name: DEBBIE GUTIERREZ CHELSI PALMER Room #: REG [facility]#: [id number] Admission: 10/25/20 Attend Phys: Keith Carson MD Discharge: Date of : 43 Report #: [id number] the RFA^. Coronary angiography was performed using coronary diagnostic catheters. The left coronary system was accessed and visualized with a VISTA 6FR XB 3.5 #[id number] catheter. Pre-demployment femoral angiogram was performed . Hemostasis was obtained with manual pressure following sheath removal without any complications. The patient tolerated the procedure well and there were no complications associated with the procedure. There was no hematoma. Intraoperative Conscious Sedation Sedation start time: 13:17 Case end Time: 13:57 Fentanyl 50 mcg Versed 1 mg Fluoro Time: 13.16 minutes Dose: DAP 37051.30 cGycm2 2372 mGy Contrast Type and Amount: Omnipaque 130 ml Coronary Angiography The patient's coronary anatomy is co- dominant. Diagnostic Cath Circumflex The left circumflex artery is a codominant vessel, with a severe proximal stenosis, 70%. OM1 OM1 is a moderate-sized caliber vessel with a early takeoff from the left circumflex artery. Before dividing into 2 branches, there is a severe occlusion in the proximal segment, 90%. Hemodynamics The aortic pressure is 199/72 mmHg with a mean of 119 mmHg. PCI Technique Lesion Percutaneous coronary intervention was performed on the first obtuse marginal branch segment. The lesion stenosis prior to intervention was 90% with BORIS 3 flow. A VISTA 6FR XB 3.5 #[id number] Guide Catheter was used to engage the ostium. A Luge Wire .014 x 182CM #[id number] Interventional Guidewire was used to cross the lesion. BALLOON DILATION A Balloon catheter Euphora RX 2.0 x12 #[id number] was inserted and inflated up to 14.00atm for 18seconds. Additional Inflation: 10.00atm for 15seconds. STENT DEPLOYMENT A drug-eluting stent RESOLUTE YANET RX 2.25 X 26 #[id number] was inserted and inflated up to 14.00atm for 23seconds. [facility] [address] [place] [address] INVASIVE PROCEDURE REPORT Name: DEBBIE GUTIERREZ [facility] Room #: REG [facility].#: [id number] Admission: 10/25/20 Attend Phys: Keith Carson MD Discharge: Date of : 43 Report #: [id number] STENT DEPLOYMENT BALLOON DILATION A Balloon catheter TREK NC RX 2.5 X 15 #[id number] was inserted and inflated up to 16.00atm for 18seconds. Additional Inflation: 16.00atm for 14seconds. Final angiography reveals 0 % stenosis with BORIS 3 flow. PCI Technique Lesion 2 Percutaneous Coronary Intervention was performed on the proximal circumflex artery segment. The lesion stenosis prior to intervention was 70% with BORIS 3 flow. A VISTA 6FR XB 3.5 #[id number] Guide Catheter was used to engage the ostium. A Luge Wire .014 x 182CM #[id number] Interventional Guidewire was used to cross the lesion. Balloon Dilation A Balloon catheter TREK RX 2.50 X 8 #[id number] was inserted and inflated up to 14.00atm for 19seconds. Stent Deployment A drug-eluting stent RESOLUTE YANET RX 3.0 X 8 #[id number] was inserted and inflated up to 16.00atm for 23seconds. Post Stent Deployment Balloon Dilation A Balloon catheter TREK NC RX 3.0 X 8 #[id number] was inserted and inflated up to 18.00atm for 13seconds. Final angiography reveals 0 % stenosis with BORIS 3 flow. Conclusion 1. Successful insertion of a drug-eluting stent into the proximal segment of a codominant left circumflex artery. 2. Successful insertion of a drug-eluting stent into the proximal segment of the first obtuse marginal artery. 3. There is normal LV systolic function. 4. Recommend dual antiplatelet therapy and guideline directed medical therapy. <ELECTRONICALLY SIGNED> By: Keith Carson MD 10/25/20 1501 150 150 Keith Carson MD /INF
--- NOTE | 2020-10-25 16:22 | NUR ---
SHEATH TO RIGHT GROIN PULLED BY ENE CLINICAL RN MANAGER. MANUAL PRESSURE HELD FOR 20 MINUTES. HEMOSTASIS AT 1615. COLLINS ORDONEZ ON 2N AWARE. PT TRANSFERRED TO
--- NOTE | 2020-10-25 20:11 | EKG ---
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
[2020-10-26] VITALS (7 sets, daily range): BP systolic 127–183; BP diastolic 45–94
[2020-10-26] MEDS ORDERED: BRILINTA90 MG PO (07:44)
[2020-10-26] MEDS ORDERED: BAYER CHEWABLE81 MG PO (07:44)
--- NOTE | 2020-10-26 08:07 | NUR ---
ASSUME CARE 1900. PT/VITALS STABLE. DENIES PAIN. GOOD ENDURANCE WITH ACTIVITY. ASSESSMENT CHARTED. PROGRESSING WELL WITH POC. SANDRA TO PROXIMAL LEFT CIRC AND PROXIMAL OM. SR ON MONITOR,. NO DISTRESS NOTED. PROGRESSING WELL WITH POC. PLAN IS POSSIBLE DISCHARGE TODAY. WILL CONTINUE TO MONITOR AND FOLLOW WITH POC
--- NOTE | 2020-10-26 12:56 | NUR ---
PATIENT DISCHARGED HOME, NO QUESTIONS OR CONCERNS DURING DISCHARGE TEACHING. TELE AND IV REMOVED. TAKEN OUT BY STAFF IN WHEELCHAIR TO PRIVAT VEHICLE WHERE A FRIEND WAITS.
== END 2020-10-26 12:56 | disposition home or self-care (01) ==
LOC: CATH 09:16 → 2N 16:37
PROVIDERS: ADMIT Internal Medicine Cardiovascular Disease; ATTEND Internal Medicine Cardiovascular Disease
DX: I25.110 Atherosclerotic heart disease of native coronary artery with unstable angina pectoris (principal); I12.0 Hypertensive chronic kidney disease with stage 5 chronic kidney disease or end stage renal disease; N18.6 End stage renal disease; Z99.2 Dependence on renal dialysis; Z79.899 Other long term (current) drug therapy; Z79.82 Long term (current) use of aspirin; Z90.89 Acquired absence of other organs
CPT/HCPCS: 32100

== ENCOUNTER → 2021-01-01 | Outpatient (CLI) | payer OTHER ==
[~2021-01-01] MED LIST changes: +BAYER CHEWABLE81 MG PO; +BRILINTA90 MG PO; +CRESTOR10 MG PO
== END ==
LOC: SJCVC 11:17
PROVIDERS: ATTEND Internal Medicine Cardiovascular Disease
DX: I48.91 Unspecified atrial fibrillation (principal); R94.31 Abnormal electrocardiogram [ECG] [EKG]; I12.9 Hypertensive chronic kidney disease with stage 1 through stage 4 chronic kidney disease, or unspecified chronic kidney disease; I25.10 Atherosclerotic heart disease of native coronary artery without angina pectoris; E78.00 Pure hypercholesterolemia, unspecified; N18.6 End stage renal disease; F17.210 Nicotine dependence, cigarettes, uncomplicated; Z79.899 Other long term (current) drug therapy; Z72.89 Other problems related to lifestyle

== ENCOUNTER → 2021-02-25 | Outpatient (CLI) | payer OTHER | LOC: SJCVCIMAG 16:02 | PROVIDERS: ATTEND Internal Medicine Cardiovascular Disease | DX: I82.602 Acute embolism and thrombosis of unspecified veins of left upper extremity (principal); R22.32 Localized swelling, mass and lump, left upper limb ==

== ENCOUNTER → 2021-03-07 | Outpatient (CLI) | payer OTHER | END | disposition home or self-care (01) | LOC: SJCVC 10:42 | PROVIDERS: ATTEND Internal Medicine Cardiovascular Disease | DX: I44.0 Atrioventricular block, first degree (principal); R94.31 Abnormal electrocardiogram [ECG] [EKG]; I10 Essential (primary) hypertension; I25.10 Atherosclerotic heart disease of native coronary artery without angina pectoris; E78.00 Pure hypercholesterolemia, unspecified; R60.9 Edema, unspecified; E78.5 Hyperlipidemia, unspecified; D64.9 Anemia, unspecified; Z79.899 Other long term (current) drug therapy; Z98.890 Other specified postprocedural states; Z98.42 Cataract extraction status, left eye ==

== ENCOUNTER → 2021-04-03 | Outpatient (CLI) | payer BC | LOC: SJCVCIMAG 07:51 | PROVIDERS: ATTEND Nuclear Medicine Nuclear Cardiology | DX: I65.23 Occlusion and stenosis of bilateral carotid arteries (principal); I70.8 Atherosclerosis of other arteries; I25.10 Atherosclerotic heart disease of native coronary artery without angina pectoris; M10.9 Gout, unspecified; E78.5 Hyperlipidemia, unspecified; I12.9 Hypertensive chronic kidney disease with stage 1 through stage 4 chronic kidney disease, or unspecified chronic kidney disease; N18.5 Chronic kidney disease, stage 5; F17.210 Nicotine dependence, cigarettes, uncomplicated; E78.00 Pure hypercholesterolemia, unspecified; Z72.89 Other problems related to lifestyle; Z79.899 Other long term (current) drug therapy ==

== ENCOUNTER → 2021-05-09 | Outpatient (CLI) | payer BC | LOC: SJCVC 10:02 | PROVIDERS: ATTEND Internal Medicine Cardiovascular Disease | DX: R94.31 Abnormal electrocardiogram [ECG] [EKG] (principal); I25.10 Atherosclerotic heart disease of native coronary artery without angina pectoris; E78.00 Pure hypercholesterolemia, unspecified; I12.9 Hypertensive chronic kidney disease with stage 1 through stage 4 chronic kidney disease, or unspecified chronic kidney disease; I73.9 Peripheral vascular disease, unspecified; N18.6 End stage renal disease; E78.5 Hyperlipidemia, unspecified; F17.210 Nicotine dependence, cigarettes, uncomplicated; Z88.8 Allergy status to other drugs, medicaments and biological substances; Z72.89 Other problems related to lifestyle ==